=== PATIENT | female | born 1965 | race Caucasian/White ===

== ENCOUNTER 2022-06-13 11:51 | Observation (INO) | payer OTHER, SELFPAY ==
[2022-06-13] VITALS (37 sets, daily range): BP systolic 100–122; BP diastolic 62–75; PULSE 67–79; RESP 12–27; TEMP 36.5–36.6; O2SAT 97–100; BMI 27.4
--- NOTE | ~2022-06-13 | XR_ITS ---
EXAMINATION: XR chest 2V DATE: 06/13/2022 13:24 INDICATION: Cough and bilateral chest pain TECHNIQUE: PA and lateral views of the chest were obtained. COMPARISON: None FINDINGS: The lungs are clear with no focal airspace opacities, pulmonary edema, pleural effusion or pneumothor ax. The cardiomediastinal silhouette is normal. Mild S-shaped curvature and mild spondylosis of the t horacic and lower thoracic spine. IMPRESSION: 1. No acute cardiopulmonary disease. Reviewed, dictated and finalized at location L.
--- NOTE | ~2022-06-13 | CT_ITS ---
EXAMINATION: CT abdomen pelvis w con DATE: 06/13/2022 14:01 INDICATION: pancreatitis, epigastric pain TECHNIQUE: Computed tomography (CT) of the abdomen and pelvis was performed with 100 mL Omnipaque-350 intravenous contrast. Automated exposure control and iterative reconstruction technique were employe d. The dose-length product was 560.00 mGy-cm. COMPARISON: None. FINDINGS: Lower thorax: 11 mm periesophageal lymph node. Liver: Normal. Biliary/Gallbladder: Gallbladder is normal. No bile duct dilation. Pancreas: No mass or duct dilation. Spleen: Normal. Adrenals: 14 mm indeterminate density right adrenal mass.. Kidneys: Punctate nonobstructing right inferior pole calcification. Subcentimeter right inferior pole hypodensity, too small to characterize but most likely represents a cyst. No suspicious mass, obstru cting stone, or hydronephrosis. GI tract: Mild distal esophageal and gastric wall edema. No small or large bowel dilation. Normal regine endix. Mesentery/Peritoneum: No ascites, mass, or free air. Prominent claudia hepatic and periaortic lymph nod es. 18 mm splenic artery aneurysm Retroperitoneum: No mass. Pelvis: Pelvic organs are within normal limits. Soft Tissues: Uncomplicated fat-containing umbilical hernia. Bones: No acute osseous finding. Lumbar scoliosis and degenerative change. IMPRESSION: Mild esophagitis/gastritis. Periesophageal lymphadenopathy. No CT evidence of pancreatitis. 14 mm ind eterminate right adrenal mass, consider nonemergent, outpatient adrenal CT for further evaluation. 18 mm splenic artery aneurysm, recommend CT follow-up in 1 year. Reviewed, dictated and finalized at location K. IMPRESSION: Mild esophagitis/gastritis. Periesophageal lymphadenopathy. No CT evidence of p ancreatitis. 14 mm indeterminate right adrenal mass, consider nonemergent, outp atient adrenal CT for further evaluation. 18 mm splenic artery aneurysm, recomm end CT follow-up in 1 year.
--- NOTE | ~2022-06-13 | US_ITS ---
Limited Abdominal Sonogram: Real-time sonographic imaging of the right upper quadrant was performed. Clinical History: Abdominal pain Findings: The liver appears normal with no evidence of mass lesion or bile duct dilatation. Main por efrain vein demonstrates normal direction of flow. The gallbladder is well distended, and appears normal with no evidence of gallstone or wall thickening. The common bile duct measures 5 mm. The visualize d pancreas, aorta, and IVC are unremarkable. Impression: No significant abnormality seen. Reviewed, dictated and finalized at location . Impression: No significant abnormality seen.
--- NOTE | 2022-06-13 12:03 | PC.NURSE ---
Pt ambulates into ER c/o SOB and tingling in bilateral feet. Pt states this morning while walking started experiencing SOB and bilateral tingling in her feet. States the tingling has been constant. States she was seen recently at [facility] for similar symptoms and back pain. States she was diagnosed with arthritis. PMS is present in the feet. Pt also has been dealing with bilateral arm pain that comes in waves for a few months. States the pain is causing her difficulty picking up her grandchild. Pt denied any arm pain at this time.
--- NOTE | 2022-06-13 12:12 | PC.NURSE ---
Pt has pain in the middle of her chest when she takes a deep breath.
--- NOTE | 2022-06-13 12:14 | ECG_ITS ---
Measurements Intervals [place] Rate: 76 P: 34 ME: 147 QRS: -16 QRSD: 89 T: 47 QT: 372 QTc: 419 Interpretive Statements SINUS RHYTHM WITH SINUS ARRHYTHMIA LOW QRS VOLTAGE IN PRECORDIAL LEADS BASELINE ARTIFACT- III, V4-V6 BORDERLINE ECG NO PREVIOUS ECG AVAILABLE FOR COMPARISON Electronically Signed On 06-13-2022 12:56:31 CDT by Charlie Silverman D.O.
--- NOTE | 2022-06-13 12:37 | ED.SOB ---
HPI - SOB/Dyspnea General Chief Complaint: Shortness of Breath/Dyspnea Stated Complaint: shorness of breath, headaches Time Seen by Provider: 06/13/22 12:02 History of Present Illness HPI Narrative: Patient is a 56-year-old female presenting with multiple complaints. Patient states that for the last several years she has had neck and back pain that goes into her shoulders. States that x-rays were done last week and she has not heard any results. Patient states that she is also concerned about a bump on her right foot. States that she sometimes feels short of breath and will have substernal chest pain. States that she experienced this yesterday and today. States that she feels generally fatigued. Denies headaches, fevers, numbness or weakness, abdominal pain, vomiting, diarrhea, dysuria, leg swelling. States that both of her feet feel tingly. Related Data Home Medications Medication Instructions Recorded Confirmed gabapentin 100 mg capsule 100 mg PO TID 06/13/22 06/13/22 tizanidine 4 mg tablet 4 mg PO Q6H 06/13/22 06/13/22 Allergies Allergy/AdvReac Type Severity Reaction Status Date / Time No Known Allergies Allergy Verified 06/13/22 11:58 Review of Systems Review of Systems: All systems reviewed & are unremarkable except as noted in HPI and below PMFSH Past Medical History Medical History Arthritis Chronic back pain Surgical History Surgical History (Updated 06/13/22 @ 23:01 by Shilpi Jackson PA-C) History of 2 sections Family History Family History Other Cancer Diabetes mellitus Social History Social History (Updated 06/13/22 @ 23:02 by Shilpi Jackson PA-C) Social History: Surrogate medical decision maker: Clinton Stokes, son. Code status: Full code. Smoking status: Never smoker Alcohol intake: former Substance use: current Substance use type: marijuana Lack of Transportation: No Lack of Food: Never True Current Housing: I Have Housing Concerned About Future Housing: No Difficulty Paying Gas/Electric Bills: No Difficulty Paying for Meds: No Currently Unemployed: No Education: High School Diploma/GED Difficulty w/ Childcare or Family Care: No Additional living arrangements comments: Lives in [place] with son Clinton. Additional occupation/education comments: Unemployed. Spiritual care concerns: No Exam Narrative: GENERAL: Well-appearing, well-nourished, and in no acute distress. HEAD: Normocephalic, atraumatic. EYES: PERRLA and EOMI. ENT: Nares clear, no rhinorrhea or epistaxis. Mucous membranes moist. NECK: Supple. CHEST: Clear to auscultation. No respiratory distress. HEART: Regular rate and rhythm. No murmur heard. Normal peripheral pulses. ABDOMEN: Soft, nontender, nondistended EXTREMITIES: Normal range of motion. No edema. SKIN: Warm, dry, no rash. + Plantar wart on mid lateral right foot NEURO: No focal deficits. Alert and oriented x3. PSYCH: Normal mood and affect. Course Vital Signs Vital signs: Vital Signs Temperature 97.7 F 06/13/22 11:55 Pulse Rate 79 06/13/22 11:55 Respiratory Rate 18 06/13/22 11:55 Blood Pressure 100/75 06/13/22 11:55 Pulse Oximetry 100 06/13/22 11:55 Oxygen Delivery Room Air 06/13/22 11:55 Temperature 97.7 F 06/14/22 04:34 Pulse Rate 77 06/14/22 04:34 Respiratory Rate 18 06/14/22 04:34 Blood Pressure 105/49 L 06/14/22 04:34 Pulse Oximetry 99 06/14/22 04:34 Oxygen Delivery Room Air 06/13/22 11:55 MDM - SOB/Dyspnea MDM Narrative Medical decision making narrative: Patient is a 56-year-old female presenting with a myriad of complaints. Vitals are within normal limits. Exam is remarkable for a wart on the bottom of her right foot but is otherwise unremarkable. EKG per my interpretation shows normal sinus rhythm
[2022-06-13] MEDS: KETOROLAC 15 MG/ML VIAL (*BKC) IV PUSH (13:13)
[2022-06-13] MEDS: SODIUM CHLORIDE 0.9% IV 1,000 ML 999 ML IV CONT (13:14)
[2022-06-13 13:25] LABS: Basophils Percent Auto 0.6 % (0.2-1.2); Eosinophils Absolute Auto 0.1 K/mm3 (0-0.3); Hematocrit 42.2 % (37.0-47.0); Hemoglobin 14.1 g/dL (12.0-15.0); Immature Granulocyte Absolute 0.02 K/mm3 (0.00-0.031); Immature Granulocyte Percent A 0.3 % (0-0.5); Lymphocytes Absolute Auto 1.93 K/mm3 (0.9-3.2); Lymphocytes Percent Auto 30.2 % (18.3-44.2); Mean Corpuscular HGB Conc 33.4 g/dl (32-36); Mean Corpuscular Volume 95.7 fl (80-100); Monocytes Absolute Auto 0.6 K/mm3 (0.1-0.6); Monocytes Percent Auto 8.8 % (2.6-8.5); Neutrophils Absolute Auto 3.7 K/mm3 (1.3-6.7); Neutrophils Percent Auto 58.1 % (45.5-73.1); Platelet Count Result 252 k/mm3 (150-375); Red Blood Count 4.41 M/mm3 (4.2-5.4); Red Cell Distribution Width 12.4 % (11.5-14.5); White Blood Count 6.4 K/mm3 (4.5-10.0)
[2022-06-13 13:36] LABS: Partial Thromboplastin Time 24.3 SECONDS (22.3-36.8); Prothrombin Time 13.5 Seconds (11.1-14.7)
[2022-06-13 13:38] LABS: Alanine Aminotransferase 35 U/L (6-35); Albumin Level 4.3 g/dL (3.5-5.1); Alkaline Phosphatase 174 U/L (38-126); Anion Gap 7 mmol/L (8-16); Aspartate Amino Transferase 31 U/L (14-36); Bilirubin,Total 0.8 mg/dL (0.2-1.3); Blood Urea Nitrogen 18 mg/dL (7-17); Calcium 9.3 mg/dL (8.4-10.2); Carbon Dioxide 26 mmol/L (22-30); Chloride 104 mmol/L (98-107); Estimated CRCL calculation 85 ml/min; Estimated Glomerular Filt Rate > 60; Glucose 90 mg/dL (65-110); Lipase 1134 U/L (23-300); Sodium 137 mmol/L (137-145)
[2022-06-13 13:47] LABS: Influenza A QL RT-PCR Negative (Negative); Influenza B QL RT-PCR Negative (Negative); SARS-CoV-2 RNA PCR Negative (Negative)
[2022-06-13 13:47] LABS: NT Pro B Type Natriuretic Pept 151 pg/mL (19.9-100)
[2022-06-13 13:50] LABS: Troponin I < 0.012 ng/mL (0.000-0.034)
--- NOTE | 2022-06-13 15:37 | PC.NURSE ---
Pt's NSS is finished. RN disconnects pt from IV tubing at 1535.
--- NOTE | 2022-06-13 18:57 | ADMGEN ---
This patient, Yen Stokes, was admitted to Medical Room [facility] @ 1437. Patient/family oriented to hospital policies and general routines including ID bracelet, bed and alarms, visiting hours, pain management, procedures, bathroom and other care routines, personal items, smoking policy, room service/diet, and visiting hours. Information on how to activate the Rapid Response Team has been discussed. Patient/Family are encouraged to report perceived risks to care and to ask questions if they do not understand what they are told or what they should do.
--- NOTE | 2022-06-13 19:05 | PM.IMHP ---
H&P: HPI History of Present Illness Date/Time: 06/13/22 17:30 Chief Complaint: Multiple complaints. Narrative: This is a 56-year-old female with chronic back pain who presented to the emergency department via private vehicle from home for evaluation of multiple complaints. The patient provides the following history. She has chronic back pain and had an extensive evaluation done by her primary physician recently, per patient report, and she was diagnosed with arthritis. She was told to take Tylenol or ibuprofen at home as needed and she was started on gabapentin and tizanidine as well. Unfortunately she continues to have significant pain at she describes as sharp and shooting which goes up and down the spine. She also reports that she is now having some pain in the low chest and upper abdominal region which is also sharp and shooting. Associated symptoms include mild shortness of breath, headache, nausea, bloating, and belching. She denies fever, chills, sweats, chest and pleuritic pain, racing heart, palpitations, vomiting, diarrhea, and dysuria. No melena or hematochezia. she has not had any recent falls. She denies focal weakness and paresthesias. Vital signs were stable on arrival to the ED. Aside from a mildly elevated lipase of 1134, her labs were otherwise pretty unremarkable. Chest x-ray showed no acute cardiopulmonary disease. CT of the abdomen and pelvis showed mild esophagitis/gastritis, periesophageal lymphadenopathy, 18 mm splenic artery aneurysm, and a 14 mm indeterminate right adrenal mass. She is being admitted in this setting for symptom management and GI consultation. Review of Systems Review of Systems: Twelve systems were reviewed and are negative except for as per HPI. [facility] Past Medical History Medical History Arthritis Chronic back pain Surgical History Surgical History (Updated 06/13/22 @ 23:01 by Shilpi Jackson PA-C) History of 2 sections Family History Family History Other Cancer Diabetes mellitus Social History Social History (Updated 06/13/22 @ 23:02 by Shilpi Jackson PA-C) Social History: Surrogate medical decision maker: Clinton Stokes, son. Code status: Full code. Smoking status: Never smoker Alcohol intake: former Substance use: current Substance use type: marijuana Lack of Transportation: No Lack of Food: Never True Current Housing: I Have Housing Concerned About Future Housing: No Difficulty Paying Gas/Electric Bills: No Difficulty Paying for Meds: No Currently Unemployed: No Education: High School Diploma/GED Difficulty w/ Childcare or Family Care: No Additional living arrangements comments: Lives in [place] with son Clinton. Additional occupation/education comments: Unemployed. Spiritual care concerns: No Meds Home Medications and Allergies Home Medications Medication Instructions Recorded Confirmed Type gabapentin 100 mg capsule 100 mg PO TID 06/13/22 06/13/22 History tizanidine 4 mg tablet 4 mg PO Q6H 06/13/22 06/13/22 History Allergies Allergy/AdvReac Type Severity Reaction Status Date / Time No Known Allergies Allergy Verified 06/13/22 11:58 Vital Signs Vital Signs - 24 hr 06/13/22 11:55 06/13/22 12:08 06/13/22 12:11 Temperature 97.7 F Pulse Rate 79 77 Respiratory Rate 18 18 Blood Pressure 100/75 Pulse Oximetry 100 Oxygen Delivery Room Air 06/13/22 12:10 06/13/22 12:15 06/13/22 12:17 Temperature Pulse Rate 72 74 Respiratory Rate 22 H 22 H Blood Pressure 103/63 Pulse Oximetry 100 100 100 Oxygen Delivery 06/13/22 12:51 06/13/22 13:00 06/13/22 13:01 Temperature Pulse Rate 70 69 72 Respiratory Rate 18 24 H 20 Blood Pressure 105/73 Pulse Oximetry 100 100 100 Oxygen Delivery 06/13/22 13:15 06/13/22 13:31 06/13/22 13:45 T
[2022-06-13 19:21] LABS: Troponin I < 0.012 ng/mL (0.000-0.034)
[2022-06-13 22:32] LABS: Troponin I < 0.012 ng/mL (0.000-0.034)
[2022-06-14] MEDS: LACTATED RINGERS 1,000 ML 100 ML IV CONT ×2 (00:24→12:53)
[2022-06-14] MEDS: HYDROcodone/acetaminophen (*CRX) 5-325 MG TABLET 1 TAB PO (00:24)
[2022-06-14] MEDS: PANTOPRAZOLE SODIUM IV 40 MG VIAL IV PUSH ×3 (00:24→20:30)
[2022-06-14 04:34] VITALS: BP 105/49; PULSE 77; RESP 18; TEMP 36.5; O2SAT 99
[2022-06-14 05:44] LABS: Hematocrit 38.7 % (37.0-47.0); Hemoglobin 12.8 g/dL (12.0-15.0); Mean Corpuscular HGB Conc 33.1 g/dl (32-36); Mean Corpuscular Hemoglobin 32.2 pg (26-34); Mean Corpuscular Volume 97.2 fl (80-100); Mean Platelet Volume 9.2 fl (7.4-10.4); Platelet Count Result 197 k/mm3 (150-375); Red Blood Count 3.98 M/mm3 (4.2-5.4); Red Cell Distribution Width 12.4 % (11.5-14.5)
[2022-06-14 06:01] LABS: Alanine Aminotransferase 30 U/L (6-35); Albumin Level 3.6 g/dL (3.5-5.1); Alkaline Phosphatase 140 U/L (38-126); Anion Gap 3 mmol/L (8-16); Aspartate Amino Transferase 28 U/L (14-36); Bilirubin,Total 0.8 mg/dL (0.2-1.3); Blood Urea Nitrogen 16 mg/dL (7-17); Calcium 8.5 mg/dL (8.4-10.2); Carbon Dioxide 26 mmol/L (22-30); Chloride 106 mmol/L (98-107); Estimated CRCL calculation 96 ml/min; Estimated Glomerular Filt Rate > 60; Glucose 84 mg/dL (65-110); Lipase 240 U/L (23-300); Magnesium 1.8 mg/dL (1.6-2.3); Potassium 3.9 mmol/L (3.4-5.0); Sodium 135 mmol/L (137-145)
--- NOTE | 2022-06-14 08:05 | PM.IMPN ---
Progress Note: A&P Assessment and Plan (1) Esophagitis with gastritis: Code(s): K29.70 - Gastritis, unspecified, without bleeding; K20.90 - Esophagitis, unspecified without bleeding Status: Acute Assessment and Plan: CT shows mild esophagitis/gastritis. This is likely the cause of her abdominal discomfort, belching, and nausea. Continue IV pantoprazole 40 mg BID. GI is been consulted and plan for EGD tomorrow. (2) Pancreatitis: Qualifiers: Chronicity: acute Pancreatitis type: unspecified pancreatitis type Acute pancreatitis complication: no infection or necrosis Qualified Code(s): K85.90 - Acute pancreatitis without necrosis or infection, unspecified Code(s): K85.90 - Acute pancreatitis without necrosis or infection, unspecified Status: Acute Assessment and Plan: Lipase is elevated 1134 with c/o abdominal pain, nausea and back pain. No evidence of acute pancreatitis on CT. Continue supportive care for now with bowel rest, IV fluid rehydration, and analgesics and antiemetics as needed. Repeat lipase 240 check Abd ultrasound Check triglycerides GI consulted as above (3) Right adrenal mass: Code(s): E27.8 - Other specified disorders of adrenal gland Status: Acute Assessment and Plan: New, incidental finding. 14 mm indeterminate right adrenal mass noted on CT. Nonemergent, outpatient adrenal CT recommended. (4) Splenic artery aneurysm: Code(s): I72.8 - Aneurysm of other specified arteries Status: Acute Assessment and Plan: New, incidental finding. 18 mm splenic artery aneurysm noted, radiologist recommend CT follow-up in 1 year. (5) Chronic back pain: Qualifiers: Back pain location: low back pain Back pain laterality: unspecified Sciatica presence: unspecified whether sciatica present Qualified Code(s): M54.50 - Low back pain, unspecified; G89.29 - Other chronic pain Code(s): M54.9 - Dorsalgia, unspecified; G89.29 - Other chronic pain Status: Chronic Assessment and Plan: Continue gabapentin and tizanidine as needed. Time Spent With Patient Time with patient: 15 - 25 minutes Subjective Date/time seen: 06/14/22 08:05 Interval history: Patient is a 56-year-old female with history of lower back pain and arthritis who is seen for follow up of possible acute pancreatitis and esophagitis. She reports feeling well today. Her pain is significantly improved and she tolerated regular diet. She will have EGD tomorrow. She denies unplanned weight loss, dysphagia, neck pain or swelling. Exam Narrative: General: Well-developed, nontoxic-appearing female sitting up in bed. HEENT: Normocephalic, atraumatic, pERRL, EOMI. Sclera anicteric. mucous membranes moist Neck: Supple. Respiratory: Lungs are clear to auscultation bilaterally. Respirations regular and unlabored Cardiovascular: Regular rate and rhythm with S1-S2. No murmurs gallops rubs Gastrointestinal: Abdomen is soft and nondistended with positive bowel sounds. Nontender to palpation all quadrants. No guarding or rebound tenderness. Skin: Warm and dry. No rash or lesions on limited exam. Extremities: No cyanosis, clubbing, or edema. Radial and pedal pulses intact. Neurological: Alert and oriented x3. Cranial nerves 2-12 are grossly intact. No gross focal deficits to casual conversation. Psychiatric: Neutral mood and affect. Objective Data Vital Signs Vital Signs: Vital Signs - 24 hr 06/13/22 11:55 06/13/22 12:08 06/13/22 12:11 Temperature 97.7 F Pulse Rate 79 77 Respiratory Rate 18 18 Blood Pressure 100/75 Pulse Oximetry 100 Oxygen Delivery Room Air 06/13/22 12:10 06/13/22 12:15 06/13/22 12:17 Temperature Pulse Rate 72 74 Respiratory Rate 22 H 22 H Blood Pressure 103/63 Pulse Oximetry 100 100 100 Oxygen Delivery 06/13/22 12:51 06/13/22 13:00 06/13/22 13:01 Temperature Pu
[2022-06-14 08:16] LABS: Cholesterol 172 mg/dL (0-200); HDL Direct 45 mg/dL; Triglycerides 81 mg/dL (<150)
[2022-06-14 08:27] LABS: LDL Cholesterol Direct 96 mg/dL
[2022-06-14 09:20] VITALS: PULSE 71; RESP 16; O2SAT 100
[2022-06-14] MEDS: GABAPENTIN 100 MG CAPSULE PO ×3 (09:28→17:58)
[2022-06-14 14:00] VITALS: BP 96/61; PULSE 71; RESP 16; TEMP 36.6; O2SAT 100
--- NOTE | 2022-06-14 14:08 | WPDGICN ---
Assessment and Plan Assessment and plan (1) Abnormal CT scan, esophagus: Code(s): R93.3 - Abnormal findings on diagnostic imaging of other parts of digestive tract Status: Acute Assessment and Plan: ct scan showed possible esophagitis will set up egd tomorrow had elevated lipase but no nausea and CT scan no pancreatitis (2) Chronic back pain: Code(s): M54.9 - Dorsalgia, unspecified; G89.29 - Other chronic pain Status: Chronic Assessment and Plan: on meds at home (3) Elevated lipase: Code(s): R74.8 - Abnormal levels of other serum enzymes Status: Acute (4) Non-cardiac chest pain: Code(s): R07.89 - Other chest pain Status: Acute Assessment and Plan: egd tomorrow (5) Colon cancer screening: Code(s): Z12.11 - Encounter for screening for malignant neoplasm of colon Status: Acute Assessment and Plan: never had colonoscopy agreeable to have one as outpatient GI Consult Note Consult date/time: 06/14/22 14:08 Reason for consult: chest pain, elevated lipase, abnormal esophagus by ct scan HPI: Yen Stokes is a 56 year old female with chronic back pain on gabapentin who came to the emergency department via private vehicle from home for evaluation of progressive back pain lately with radiation to upper chest described as sharp and shooting. She also had mild shortness of breath, headache, bloating, and belching. No melena or hematochezia. Blood work showed mildly elevated lipase of 1134, her labs were otherwise pretty unremarkable. Chest x-ray showed no acute cardiopulmonary disease. CT of the abdomen and pelvis showed mild esophagitis/gastritis, periesophageal lymphadenopathy, 18 mm splenic artery aneurysm (no pancreatitis). Never had scopes. Denies nausea and pain is better now. She is hungry Review of Systems Constitutional: Constitutional: Denies chills Eyes: Eyes: Denies blurry vision ENT: Reports Normal hearing present Cardiovascular: Cardiovascular: Reports chest pain Respiratory: Respiratory: Denies cough Gastrointestinal: Gastrointestinal: Denies vomiting Genitourinary: Genitourinary: Denies hematuria Musculoskeletal: Musculoskeletal: Reports back pain Integumentary/Breasts: Skin/Breast: Denies rash Neurologic: Denies Abnormal speech present Psychiatric: Psychiatric: Denies confusion [facility] Past Medical History Medical History (Updated 06/14/22 @ 14:14 by Abdi Bonilla MD) Abnormal CT scan, esophagus Arthritis Chronic back pain Colon cancer screening Elevated lipase Non-cardiac chest pain Surgical History Surgical History (Updated 06/13/22 @ 23:01 by Shilpi Jackson PA-C) History of 2 sections Family History Family History Other Cancer Diabetes mellitus Social History Social History (Updated 06/13/22 @ 23:02 by Shilpi Jackson PA-C) Social History: Surrogate medical decision maker: Clinton Stokes, son. Code status: Full code. Smoking status: Never smoker Alcohol intake: former Substance use: current Substance use type: marijuana Lack of Transportation: No Lack of Food: Never True Current Housing: I Have Housing Concerned About Future Housing: No Difficulty Paying Gas/Electric Bills: No Difficulty Paying for Meds: No Currently Unemployed: No Education: High School Diploma/GED Difficulty w/ Childcare or Family Care: No Additional living arrangements comments: Lives in [place] with son Clinton. Additional occupation/education comments: Unemployed. Spiritual care concerns: No Meds Home Medications and Allergies Home Medications Medication Instructions Recorded Confirmed Type gabapentin 100 mg capsule 100 mg PO TID 06/13/22 06/13/22 History tizanidine 4 mg tablet 4 mg PO Q6H 06/13/22 06/13/22 History Allergies Allergy/AdvReac Type Severity
[2022-06-14 19:39] VITALS: BP 124/57; PULSE 69; RESP 18; TEMP 36.1; O2SAT 96
[2022-06-14 20:00] VITALS: PULSE 69; RESP 18; O2SAT 96
[2022-06-15] VITALS (9 sets, daily range): BP systolic 88–133; BP diastolic 51–79; PULSE 61–75; RESP 16–22; TEMP 36.5–36.7; O2SAT 95–100
[2022-06-15 06:23] LABS: Basophils Percent Auto 0.7 % (0.2-1.2); Eosinophils Absolute Auto 0.5 K/mm3 (0-0.3); Hematocrit 44.4 % (37.0-47.0); Hemoglobin 14.8 g/dL (12.0-15.0); Immature Granulocyte Absolute 0.01 K/mm3 (0.00-0.031); Immature Granulocyte Percent A 0.2 % (0-0.5); Lymphocytes Absolute Auto 1.68 K/mm3 (0.9-3.2); Lymphocytes Percent Auto 27.4 % (18.3-44.2); Mean Corpuscular HGB Conc 33.3 g/dl (32-36); Mean Corpuscular Volume 95.9 fl (80-100); Mean Platelet Volume 9.6 fl (7.4-10.4); Monocytes Absolute Auto 0.6 K/mm3 (0.1-0.6); Monocytes Percent Auto 10.3 % (2.6-8.5); Neutrophils Absolute Auto 3.3 K/mm3 (1.3-6.7); Neutrophils Percent Auto 53.4 % (45.5-73.1); Platelet Count Result 242 k/mm3 (150-375); Red Blood Count 4.63 M/mm3 (4.2-5.4); Red Cell Distribution Width 12.5 % (11.5-14.5); White Blood Count 6.1 K/mm3 (4.5-10.0)
[2022-06-15 06:31] LABS: Prothrombin Time 13.5 Seconds (11.1-14.7)
[2022-06-15 06:32] LABS: Partial Thromboplastin Time 26.1 SECONDS (22.3-36.8)
[2022-06-15 06:34] LABS: Alanine Aminotransferase 33 U/L (6-35); Albumin Level 4.4 g/dL (3.5-5.1); Alkaline Phosphatase 165 U/L (38-126); Anion Gap 3 mmol/L (8-16); Aspartate Amino Transferase 33 U/L (14-36); Bilirubin,Total 0.6 mg/dL (0.2-1.3); Blood Urea Nitrogen 17 mg/dL (7-17); Calcium 9.3 mg/dL (8.4-10.2); Carbon Dioxide 30 mmol/L (22-30); Chloride 105 mmol/L (98-107); Estimated CRCL calculation 84 ml/min; Estimated Glomerular Filt Rate > 60; Glucose 99 mg/dL (65-110); Magnesium 1.9 mg/dL (1.6-2.3); Potassium 4.3 mmol/L (3.4-5.0); Sodium 138 mmol/L (137-145)
[2022-06-15] MEDS: GABAPENTIN 100 MG CAPSULE PO ×3 (08:08→17:29)
[2022-06-15] MEDS: PANTOPRAZOLE SODIUM IV 40 MG VIAL IV PUSH (08:08)
[2022-06-15] MEDS: LACTATED RINGERS 1,000 ML 150 ML IV CONT (11:15)
--- NOTE | 2022-06-15 11:49 | WPDANESEPPF ---
Anes - Initial Pre Proc Eval Procedure: Operation Date: 06/15/22 12:00 Proposed Procedures p Esophagogastroduodenoscopy - Abdi Bonilla MD Date/Time: 06/15/22 11:49 Surgeon: Jameson Resendez MD Pre Op Diagnosis: Pancreatitis Patient Data Age: 56 Gender: F Height: 1.68 m Weight: 78.6 kg Last Vital Signs Temp 97.7 F 06/15/22 11:05 Pulse 61 06/15/22 11:05 Resp 16 06/15/22 11:05 BP 94/61 L 06/15/22 11:44 Pulse Ox 99 06/15/22 11:05 O2 Del Method Room Air 06/15/22 11:05 Allergies Allergy/AdvReac Type Severity Reaction Status Date / Time No Known Allergies Allergy Verified 06/15/22 11:02 Home Medications Medication Instructions Recorded Confirmed Type gabapentin 100 mg capsule 100 mg PO TID 06/13/22 06/13/22 History tizanidine 4 mg tablet 4 mg PO Q6H 06/13/22 06/13/22 History Laboratory Tests 06/15/22 06:04 WBC 6.1 K/mm3 (4.5-10.0) RBC 4.63 M/mm3 (4.2-5.4) Hgb 14.8 g/dL (12.0-15.0) Hct 44.4 % (37.0-47.0) MCV 95.9 fl (80-100) MCH 32.0 pg (26-34) MCHC 33.3 g/dl (32-36) RDW 12.5 % (11.5-14.5) Plt Count 242 k/mm3 (150-375) MPV 9.6 fl (7.4-10.4) Immature Gran % (Auto) 0.2 % (0-0.5) Neut % (Auto) 53.4 % (45.5-73.1) Lymph % (Auto) 27.4 % (18.3-44.2) [place] % (Auto) 10.3 H % (2.6-8.5) Eos % (Auto) 8.0 H % (0-4.4) Baso % (Auto) 0.7 % (0.2-1.2) Lymph # (Auto) 1.68 K/mm3 (0.9-3.2) [place] # (Auto) 0.6 K/mm3 (0.1-0.6) Eos # (Auto) 0.5 H K/mm3 (0-0.3) Baso # (Auto) 0.0 K/mm3 (0.0-0.1) Abs Immat Gran (auto) 0.01 K/mm3 (0.00-0.031) Absolute Neuts (auto) 3.3 K/mm3 (1.3-6.7) Absolute Nucleated RBC 0.0 K/mm3 (0.0-0.012) Nucleated RBC % 0.0 % (0.0-0.2) PT 13.5 Seconds (11.1-14.7) INR 1.0 APTT 26.1 SECONDS (22.3-36.8) Sodium 138 mmol/L (137-145) Potassium 4.3 mmol/L (3.4-5.0) Chloride 105 mmol/L (98-107) Carbon Dioxide 30 mmol/L (22-30) Anion Gap 3 L mmol/L (8-16) BUN 17 mg/dL (7-17) Creatinine 0.70 mg/dL (0.7-1.0) Estim Creat Clear Calc 84 ml/min Estimated GFR > 60 (59 - ) Glucose 99 mg/dL (65-110) Calcium 9.3 mg/dL (8.4-10.2) Magnesium 1.9 mg/dL (1.6-2.3) Total Bilirubin 0.6 mg/dL (0.2-1.3) AST 33 U/L (14-36) ALT 33 U/L (6-35) Alkaline Phosphatase 165 H U/L (38-126) Total Protein 8.0 g/dL (6.3-8.2) Albumin 4.4 g/dL (3.5-5.1) Patient hx anesthesia problems: none Family hx anesthesia problems: none Results Review: All pre-operative results and documents have been reviewed as part of the pre-operative evaluation. [facility] Past Medical History Medical History (Updated 06/14/22 @ 17:00 by Jacquelyn Harrison APRN) Abnormal CT scan, esophagus Arthritis Chronic back pain Colon cancer screening Elevated lipase Non-cardiac chest pain Surgical History Surgical History (Updated 06/13/22 @ 23:01 by Shilpi Jackson PA-C) History of 2 sections Family History Family History Other Cancer Diabetes mellitus Social History Social History (Updated 06/13/22 @ 23:02 by Shilpi Jackson PA-C) Social History: Surrogate medical decision maker: Clinton Stokes, son. Code status: Full code. Smoking status: Never smoker Alcohol intake: former Substance use: current Substance use type: marijuana Lack of Transportation: No Lack of Food: Never True Current Housing: I Have Housing Concerned About Future Housing: No Difficulty Paying Gas/Electric Bills: No Difficulty Paying for Meds: No Currently Unemployed: No Education: High School Diploma/GED Difficulty w/ Childcare or Family Care: No Additional living arrangements comments: Lives in [place] with son Clinton. Additional occupation/education c
--- NOTE | 2022-06-15 15:57 | PM.IMPN ---
Progress Note: A&P Assessment and Plan (1) Esophagitis with gastritis: Code(s): K29.70 - Gastritis, unspecified, without bleeding; K20.90 - Esophagitis, unspecified without bleeding Status: Acute Assessment and Plan: CT shows mild esophagitis/gastritis. This is likely the cause of her abdominal discomfort, belching, and nausea. / EGD shows moderate, erosive gastritis. Continue pantoprazole 40 mg PO daily GI following. Advance diet as tolerated. (2) Pancreatitis: Qualifiers: Chronicity: acute Pancreatitis type: unspecified pancreatitis type Acute pancreatitis complication: no infection or necrosis Qualified Code(s): K85.90 - Acute pancreatitis without necrosis or infection, unspecified Code(s): K85.90 - Acute pancreatitis without necrosis or infection, unspecified Status: Resolved Assessment and Plan: Possible pancreatitis given elevated lipase and abdominal pain, however, no evidence of acute pancreatitis on CT. supportive care given initally with bowel rest, IV fluid rehydration, and analgesics and antiemetics as needed. Lipase 1134 to 240 Abd ultrasound without gallbladder disease. triglycerides <100 GI consulted as above (3) Right adrenal mass: Code(s): E27.8 - Other specified disorders of adrenal gland Status: Acute Assessment and Plan: New, incidental finding. 14 mm indeterminate right adrenal mass noted on CT. Nonemergent, outpatient adrenal CT recommended. (4) Splenic artery aneurysm: Code(s): I72.8 - Aneurysm of other specified arteries Status: Acute Assessment and Plan: New, incidental finding. 18 mm splenic artery aneurysm noted, radiologist recommend CT follow-up in 1 year. (5) Chronic back pain: Qualifiers: Back pain location: low back pain Back pain laterality: unspecified Sciatica presence: unspecified whether sciatica present Qualified Code(s): M54.50 - Low back pain, unspecified; G89.29 - Other chronic pain Code(s): M54.9 - Dorsalgia, unspecified; G89.29 - Other chronic pain Status: Chronic Assessment and Plan: Continue gabapentin and tizanidine as needed. (6) Lymphadenopathy: Code(s): R59.1 - Generalized enlarged lymph nodes Status: Acute Assessment and Plan: New, incidental finding. 11 mm periesophageal lymph node enlargement. Discussed with radiology and likely reactive and not amendable to biopsy. Repeat CT in 6-8 weeks for follow up. Plan CODE STATUS: FULL CODE Discharge disposition: discharge home tomorrow if tolerating diet. Time Spent With Patient Time: 25 minutes time spent with patient assessment, patient education, review of labs, vitals, nursing documentation, and consulting with specialty provider. All questions answered to the best of my ability. Subjective Date/time seen: 06/15/22 15:57 Interval history: Patient is a 56-year-old female with history of lower back pain and arthritis who is seen for follow up of possible acute pancreatitis and esophagitis. Patient had EGD today. She reports nausea and some diffuse abdominal cramping today. No emesis. She has not eaten yet. No chest pain, SOB, palpitations, or dizziness. Review of Systems Review of Systems: All systems reviewed & are unremarkable except as noted in HPI and below Exam Narrative: General: Well-developed, nontoxic-appearing female sitting up in bed. HEENT: Normocephalic, atraumatic, pERRL, EOMI. Sclera anicteric. mucous membranes moist Neck: Supple. Respiratory: Lungs are clear to auscultation bilaterally. Respirations regular and unlabored Cardiovascular: Regular rate and rhythm with S1-S2. No murmurs gallops rubs Gastrointestinal: Abdomen is soft and nondistended with positive bowel sounds. Nontender to palpation all quadrants. No guarding or rebound tenderness. Skin: Warm and dry. No rash or lesions on limited exam.
[2022-06-16 04:58] VITALS: BP 103/62; PULSE 82; RESP 16; TEMP 36.2; O2SAT 98
[2022-06-16] MEDS: PANTOPRAZOLE 40 MG TABLET PO (08:45)
[2022-06-16] MEDS: GABAPENTIN 100 MG CAPSULE PO ×3 (08:45→16:57)
--- NOTE | 2022-06-16 13:16 | PM.DS ---
DS: Admitting Diagnosis Discharge Date 06/16/2022 Admitting Diagnosis Esophagitis with gastritis Acute pancreatitis without necrosis or infection, unspecified Right adrenal mass Splenic artery aneurysm Chronic back pain DS: Discharge Diagnosis Discharge Diagnosis (1) Gastritis: Qualifiers: Gastritis type: other gastritis Chronicity: acute Gastritis bleeding: without bleeding Qualified Code(s): K29.00 - Acute gastritis without bleeding Code(s): K29.70 - Gastritis, unspecified, without bleeding Status: Acute Assessment and Plan: CT suggests mild esophagitis/gastritis. This is likely the cause of her abdominal discomfort, belching, and nausea.? 06/15 EGD shows moderate erosive gastritis.? Continue pantoprazole 40 mg PO daily GI following.? Advance diet following EGD to low residue diet and patient is tolerating.? (2) Elevated lipase: Code(s): R74.8 - Abnormal levels of other serum enzymes Status: Acute Assessment and Plan: Possible pancreatitis given elevated lipase and abdominal pain, however, no evidence of acute pancreatitis on CT.?Pain is likely secondary to gastritis and unknown clinical significance of elevated lipase. supportive care given initially with bowel rest, IV fluid rehydration, and analgesics and antiemetics as needed.? Lipase 1134 to 240 Abd ultrasound without gallbladder disease.? triglycerides <100? GI consulted as above Improved abd pain on PPI therapy at discharge.d (3) Non-cardiac chest pain: Code(s): R07.89 - Other chest pain Status: Acute Assessment and Plan: Secondary to gastroenteritis as above. Troponin negative x3 EKG without ischemic changes. (4) Right adrenal mass: Code(s): E27.8 - Other specified disorders of adrenal gland Status: Acute Assessment and Plan: New, incidental finding. 14 mm indeterminate right adrenal mass noted on CT. Nonemergent, outpatient adrenal CT recommended. (5) Splenic artery aneurysm: Code(s): I72.8 - Aneurysm of other specified arteries Status: Acute Assessment and Plan: New, incidental finding. 18 mm splenic artery aneurysm noted, radiologist recommend CT follow-up in 1 year. (6) Chronic back pain: Qualifiers: Back pain laterality: unspecified Back pain location: low back pain Sciatica presence: unspecified whether sciatica present Qualified Code(s): M54.50 - Low back pain, unspecified; G89.29 - Other chronic pain Code(s): M54.9 - Dorsalgia, unspecified; G89.29 - Other chronic pain Status: Chronic Assessment and Plan: Continue gabapentin and tizanidine as needed. (7) Lymphadenopathy: Code(s): R59.1 - Generalized enlarged lymph nodes Status: Acute Assessment and Plan: New, incidental finding. 11 mm periesophageal lymph node enlargement. Discussed with radiology and likely reactive and not amendable to biopsy. Repeat CT in 6-8 weeks for follow up. DS: Summary Hospital Course Reason for hospitalization: Abd pain, possible acute pancreatitis Hospital Course: Patient is a 56-year-old female with chronic back pain who presented to the emergency department via private vehicle from home for evaluation of multiple complaints. She has chronic back pain and had an extensive evaluation done by her primary physician recently, per patient report, and she was diagnosed with arthritis. She was told to take Tylenol or ibuprofen at home as needed and she was started on gabapentin and tizanidine as well. Unfortunately she continues to have significant pain at she describes as sharp and shooting which goes up and down the spine. She has been having some pain in the low chest and upper abdominal region which is also sharp and shooting. Associated symptoms include mild shortness of breath, headache, nausea, bloating, and belching. She denied fever, chills, sweats, chest and pleuriti
[2022-06-16] MEDS: SIMETHICONE 80 MG TAB.CHEW PO ×2 (13:30→16:57)
[2022-06-16 14:00] VITALS: BP 115/72; PULSE 75; RESP 16; TEMP 36.5; O2SAT 100
--- NOTE | 2022-06-16 15:09 | WPDGIPROGNO ---
Progress Note: A&P Assessment and Plan (1) Gastritis: Code(s): K29.70 - Gastritis, unspecified, without bleeding Status: Acute Assessment and Plan: gastritis s/p bx she can go home with ppi (2) Non-cardiac chest pain: Code(s): R07.89 - Other chest pain Status: Acute (3) Colon cancer screening: Code(s): Z12.11 - Encounter for screening for malignant neoplasm of colon Status: Acute Assessment and Plan: will arrange colonoscopy as outpatient since never had one (4) Chronic back pain: Qualifiers: Back pain location: low back pain Back pain laterality: unspecified Sciatica presence: unspecified whether sciatica present Qualified Code(s): M54.50 - Low back pain, unspecified; G89.29 - Other chronic pain Code(s): M54.9 - Dorsalgia, unspecified; G89.29 - Other chronic pain Status: Chronic Subjective Date/time seen: 06/16/22 15:09 Interval history: egd yesterday showed gastritis, today had bloating and gas sensation , better today and going home Review of Systems Review of Systems: All systems reviewed & are unremarkable except as noted in HPI and below Exam Const: General: comfortable and no acute distress HENMT: Face/Nose/Sinus: Normal nares present Eyes: General: appearance normal, both eyes and all related structures Neck: Neck: no JVD Resp: Auscultation: clear to auscultation bilaterally Cardio: Rate: regular rate Rhythm: regular rhythm GI: Inspection: non-distended GI Palp: Yes Soft to palpation, No Tenderness to palpation present (GI) and No Guarding due to palpation present (GI) Auscultation: normal bowel sounds Skin: General skin exam: normal color Neuro: Speech: normal speech Motor exam (neuro): 5/5 motor strength present throughout Extrem: General: normal to inspection Psych: Mental Status: mental status grossly normal Objective Data Vital Signs Vital Signs: Vital Signs - 24 hr 06/15/22 20:40 06/15/22 20:00 06/16/22 04:58 Temperature 97.9 F 97.1 F L Pulse Rate 75 75 82 Respiratory Rate 18 18 16 Blood Pressure 103/69 103/62 Pulse Oximetry 99 99 98 Oxygen Delivery Room Air 06/16/22 14:00 Temperature 97.7 F Pulse Rate 75 Respiratory Rate 16 Blood Pressure 115/72 Pulse Oximetry 100 Oxygen Delivery Intake/Output Intake/Output: Intake & Output 06/13/22 06/14/22 06/15/22 06/16/22 23:59 23:59 23:59 23:59 Intake Total 1000 3280 1410 530 Output Total 1400 1150 1050 Balance 1000 1880 260 -520 Meds/Results Medications: Active Medications Generic Name Dose Route Start Last Admin Trade Name Freq PRN Reason Stop Dose Admin Acetaminophen 650 mg 06/13/22 23:02 Acetaminophen 325 Mg Tablet PO Q6H PRN Mild Pain (1-3) or Fever Hydrocodone Bitart/Acetaminophen 1 tab 06/13/22 23:02 06/14/22 00:24 Hydrocodone/Acetaminophen (*Crx) 5-325 Mg Tablet PO 1 tab Q6H PRN Administration Pain Rated 4-6 Gabapentin 100 mg 06/14/22 09:00 06/16/22 13:30 Gabapentin 100 Mg Capsule PO 100 mg TID DIPIKA Administration Morphine Sulfate 2 mg 06/13/22 23:02 Morphine Sulfate (*Crx) 2 Mg/Ml Inj IV PUSH Q4H PRN Pain Rated 7-10 Ondansetron HCl 4 mg 06/13/22 16:10 Ondansetron Inj 4 Mg/2 Ml Vial IV PUSH Q4H PRN Nausea Pantoprazole Sodium 40 mg 06/16/22 09:00 06/16/22 08:45 Pantoprazole 40 Mg Tablet PO 40 mg QAM DIPIKA Administration Simethicone 80 mg 06/16/22 13:00 06/16/22 13:30 Simethicone 80 Mg Tab.Chew PO 80 mg QID DIPIKA Administration Tizanidine HCl 4 mg 06/13/22 22:56 Tizanidine Hcl 4 Mg Tablet PO Q6H PRN muscle spasms Radiology Results: ITS Impressions Chest X-Ray 06/13/22 13:25 IMPRESSION: 1. No acute cardiopulmonary disease. Abdomen/Pelvis CT 06/13/22 14:12 IMPRESSION: Mild esophagitis/gastritis. Periesophageal lymphadenopathy. No CT evidence of pancreatitis. 14 mm indetermin
== END 2022-06-16 18:34 | disposition home or self-care (01) ==
LOC: ANHED 12:50 → ANH3MED 19:28
PROVIDERS: Internal Medicine Gastroenterology; Nurse Practitioner Family; Physician Assistant; Admitting Provider Internal Medicine; Emergency Provider Emergency Medicine; PCP Internal Medicine; Visit Provider Student in an Organized Health Care Education/Training Program
PROC: 0DJ08ZZ Inspection of Upper Intestinal Tract, Via Natural or Artificial Opening Endoscopic (ICD-10-PCS; CPT 43235; principal; 2022-06-15 12:00)
DX: K29.70 Gastritis, unspecified, without bleeding (principal); E27.8 Other specified disorders of adrenal gland; I72.8 Aneurysm of other specified arteries; G89.29 Other chronic pain; M54.50 Low back pain, unspecified; Z20.822 Contact with and (suspected) exposure to COVID-19; D35.00 Benign neoplasm of unspecified adrenal gland; R93.3 Abnormal findings on diagnostic imaging of other parts of digestive tract; R07.89 Other chest pain; R59.1 Generalized enlarged lymph nodes; R06.02 Shortness of breath; R51.9 Headache, unspecified; R74.8 Abnormal levels of other serum enzymes; F12.90 Cannabis use, unspecified, uncomplicated; Z79.899 Other long term (current) drug therapy
CPT/HCPCS: 43239; 36415; 71046; 74177; 76705; 80053; 80061; 83690; 83735; 83880; 84484; 85025; 85027; 85610; 85730; 87636; 88305; 93005; 96361; 96374; 96376; 99285; A9270; C9113; G0378; G0379; J1885; J2704; J7030; J7120; Q9967

== ENCOUNTER 2022-07-31 15:15 | Emergency (ER) | payer OTHER, SELFPAY ==
--- NOTE | ~2022-07-31 | XR_ITS ---
EXAM: XR hip RT min 2V DATE: 07/31/2022 18:50 HISTORY: Right hip pain, NKI . COMPARISON: None available. FINDINGS: Normal mineralization. No fracture or dislocation. No lytic or blastic lesion. Mild degene rative change in the lumbar spine, right hip, and pubic symphysis. No erosion or periosteal change. S oft tissues within normal limits. IMPRESSION: No acute osseous finding in the right hip. Reviewed, dictated and finalized at location K.
--- NOTE | ~2022-07-31 | XR_ITS ---
EXAM: XR knee RT 3V DATE: 07/31/2022 18:50 HISTORY: knee pain, NKI . COMPARISON: None available. FINDINGS: Normal mineralization. No fracture or dislocation. No lytic or blastic lesion. Mild tricom partmental osteoarthritis. No erosion or periosteal change. Soft tissues within normal limits. IMPRESSION: No acute osseous finding in the right knee. Reviewed, dictated and finalized at location K.
--- NOTE | ~2022-07-31 | XR_ITS ---
EXAM: XR shoulder RT min 2V DATE: 07/31/2022 18:51 HISTORY: shoulder pain, NKI . COMPARISON: None available. FINDINGS: Normal mineralization. No fracture or dislocation. No lytic or blastic lesion. Moderate AC joint and mild glenohumeral joint degenerative change. Mild subacromial narrowing. No erosion or per iosteal change. Soft tissues within normal limits. IMPRESSION: Moderate AC joint and mild glenohumeral joint osteoarthritis. Subacromial narrowing as ca n be seen with rotator cuff pathology. No acute osseous finding in the right shoulder. Reviewed, dictated and finalized at location K. IMPRESSION: Moderate AC joint and mild glenohumeral joint osteoarthritis. Subac romial narrowing as can be seen with rotator cuff pathology. No acute osseous f inding in the right shoulder.
[2022-07-31 15:16] VITALS: BP 117/68; PULSE 68; RESP 16; TEMP 36.2; O2SAT 100
[2022-07-31 17:39] VITALS: PULSE 60
--- NOTE | 2022-07-31 17:42 | ED.GENADULT ---
HPI - General Adult General Chief complaint: Unspecified Stated complaint: shooting pains Time Seen by Provider: 07/31/22 17:39 History of Present Illness HPI narrative: 56-year-old female presented the ED for evaluation of pain that shot from the right side of her neck and down her arm. Patient also complaining of some pain that radiates from her hip to her knee. Patient states both these are chronic. At time of examination patient denies any current pain or complaints. Patient reports that she does have a history of shoulder issues but has not yet had follow-up for the worsening pain. Related Data Home Medications Medication Instructions Recorded Confirmed gabapentin 100 mg capsule 100 mg PO TID 06/13/22 06/13/22 tizanidine 4 mg tablet 4 mg PO Q6H 06/13/22 06/13/22 Allergies Allergy/AdvReac Type Severity Reaction Status Date / Time No Known Allergies Allergy Verified 07/31/22 17:47 Review of Systems Review of Systems: All systems reviewed & are unremarkable except as noted in HPI and below PMFSH Past Medical History Medical History (Updated 08/01/22 @ 00:01 by Kevin Luke) Abnormal CT scan, esophagus Arthritis Chronic back pain Colon cancer screening Elevated lipase Non-cardiac chest pain Surgical History Surgical History (Updated 06/13/22 @ 23:01 by Shilpi Jackson PA-C) History of 2 sections Family History Family History Other Cancer Diabetes mellitus Social History Social History (Updated 06/13/22 @ 23:02 by Shilpi Jackson PA-C) Social History: Surrogate medical decision maker: Clinton Stokes, blas. Code status: Full code. Smoking status: Never smoker Alcohol intake: former Substance use: current Substance use type: marijuana Lack of Transportation: No Lack of Food: Never True Current Housing: I Have Housing Concerned About Future Housing: No Difficulty Paying Gas/Electric Bills: No Difficulty Paying for Meds: No Currently Unemployed: No Education: High School Diploma/GED Difficulty w/ Childcare or Family Care: No Additional living arrangements comments: Lives in [place] with son Clinton. Additional occupation/education comments: Unemployed. Spiritual care concerns: No Exam Narrative: APPEARANCE: Well appearing, no pain, no distress, well-nourished. HEAD: normocephalic, atraumatic. EYES: PERRLA/EOMI, conjunctivae clear. NOSE: Normal no drainage EARS:TMS clear with good light reflex. THROAT: Pharynx clear, no exudate. NECK: Supple. No adenopathy, no masses. RESPIRATORY: Airway patent, respirations nonlabored. Clear to auscultation bilaterally, no rales, rhonchi, wheezing. CARDIOVASCULAR: Regular rate and rhythm without murmurs rubs or gallops. ABDOMINAL: Soft, nontender, nondistended, normal bowel sounds MUSCULOSKELETAL: Left shoulder tenderness to palpation. NEURO: Alert. Cranial nerves II through XII intact. Grossly intact SKIN: Warm, dry. Normal Color Course Course Emergency Course: 56-year-old female presented to the ED for evaluation of left leg pain and left shoulder pain. X-ray of shoulder was concerning for rotator cuff injury. Patient was updated the results of the imaging and was encouraged of close follow-up with her primary care physician and with orthopedics. All questions and concerns were addressed and patient was well-appearing, discharged. Vital Signs Vital signs: Vital Signs Temperature 97.2 F L 07/31/22 15:16 Pulse Rate 68 07/31/22 15:16 Respiratory Rate 16 07/31/22 15:16 Blood Pressure 117/68 07/31/22 15:16 Pulse Oximetry 100 07/31/22 15:16 Temperature 97.8 F 07/31/22 19:08 Pulse Rate 69 07/31/22 20:08 Respiratory Rate 21 H 07/31/22 20:08 Blood Pressure 126/71 07/31/22 20:08 Pulse Oximetry 97 07/31/22 20:08 Medical Decision Making Vital Signs Vital Signs: Vital Signs Te
[2022-07-31 17:46] VITALS: BP 120/70; PULSE 62; RESP 22; O2SAT 100
[2022-07-31 17:47] VITALS: RESP 18; O2SAT 100
[2022-07-31] MEDS: KETOROLAC 30 MG/ML VIAL (*BKC) IM (18:47)
[2022-07-31 19:08] VITALS: BP 118/63; PULSE 65; RESP 20; TEMP 36.6; O2SAT 100
--- NOTE | 2022-07-31 19:09 | PC.NURSE ---
Patient states that since she got the pain medicine she has no pain.
[2022-07-31 20:08] VITALS: BP 126/71; PULSE 69; RESP 21; O2SAT 97
== END 2022-07-31 20:08 | disposition home or self-care (01) ==
PROVIDERS: Emergency Provider Emergency Medicine; PCP Internal Medicine
DX: M19.011 Primary osteoarthritis, right shoulder (principal)
CPT/HCPCS: 73030; 73502; 73562; 96372; 99284; J1885

== ENCOUNTER 2022-08-14 02:23 | Day surgery (SDC) | payer OTHER, SELFPAY ==
[2022-08-07 10:44] VITALS: BMI 27.0
[2022-08-14 09:14] VITALS: BP 101/43; PULSE 79; RESP 16; TEMP 36.2; O2SAT 99; BMI 27.4
[2022-08-14] MEDS: LACTATED RINGERS 1,000 ML 150 ML IV CONT (09:24)
--- NOTE | 2022-08-14 09:56 | WPDANESEPPF ---
Anes - Initial Pre Proc Eval Procedure: Operation Date: 08/14/22 10:45 Proposed Procedures p Screening Colonoscopy - Abdi Bonilla MD Date/Time: 08/14/22 09:56 Surgeon: Abdi Bonilla MD Pre Op Diagnosis: neoplasm screening Patient Data Age: 56 Gender: F Height: 1.68 m Weight: 77.2 kg Last Vital Signs Temp 97.2 F L 08/14/22 09:14 Pulse 79 08/14/22 09:14 Resp 16 08/14/22 09:14 BP 101/43 L 08/14/22 09:14 Pulse Ox 99 08/14/22 09:14 O2 Del Method Room Air 08/14/22 09:14 Allergies Allergy/AdvReac Type Severity Reaction Status Date / Time No Known Allergies Allergy Verified 08/14/22 09:13 Home Medications Medication Instructions Recorded Confirmed Type tizanidine 4 mg tablet 4 mg PO Q6H 06/13/22 08/14/22 History cyclobenzaprine 10 mg tablet 10 mg PO BID PRN muscle spasm #14 07/31/22 08/14/22 Rx tabs gabapentin 300 mg capsule 300 mg PO TID 08/07/22 08/14/22 History meloxicam 7.5 mg tablet 7.5 mg PO DAILY 08/07/22 08/14/22 History Patient hx anesthesia problems: none Family hx anesthesia problems: none Results Review: All pre-operative results and documents have been reviewed as part of the pre-operative evaluation. [facility] Past Medical History Medical History (Updated 08/01/22 @ 00:01 by Kevin Luke) Abnormal CT scan, esophagus Arthritis Chronic back pain Colon cancer screening Elevated lipase Non-cardiac chest pain Surgical History Surgical History (Updated 06/13/22 @ 23:01 by Shilpi Jackson PA-C) History of 2 sections Family History Family History Other Cancer Diabetes mellitus Social History Social History (Updated 06/13/22 @ 23:02 by Shilpi Jackson PA-C) Social History: Surrogate medical decision maker: Clinton Stokes, son. Code status: Full code. Smoking status: Never smoker Alcohol intake: current Substance use: current Substance use type: marijuana Other substance usage details: SMOKES FOR THE PAIN MOST DAYS OR 4-5 DAYS A WEEK Lack of Transportation: No Lack of Food: Never True Current Housing: I Have Housing Concerned About Future Housing: No Difficulty Paying Gas/Electric Bills: No Difficulty Paying for Meds: No Currently Unemployed: No Education: High School Diploma/GED Difficulty w/ Childcare or Family Care: No Living arrangements: with family Additional living arrangements comments: Lives in [place] with son Clinton. Additional occupation/education comments: Unemployed. Spiritual care concerns: No Anes - Eval Final PreProcedure Day of Procedure 08/14/22 09:56 Patient weight: normal Heart: regular rate and rhythm Lungs: clear to auscultation Airway: Mallampati scale class II Neurological: alert and oriented Last oral intake: >/= 8 hours ASA classification: II Emergent: no Anesthetic plan: proceed Anesthesia type and monitoring: general GIVS and standard monitoring Results Review: All pre-operative results and documents have been reviewed as part of the pre-operative evaluation. Informed Consent: The patient's anesthetic plan and its attendant risks and benefits were discussed with the patient/family/POA. Questions were solicited and answers provided to the satisfaction of the patient/family/POA.
--- NOTE | 2022-08-14 09:57 | PM.HPGS ---
History of Present Illness History of Present Illness Consent: Risks, benefits, and alternatives have been discussed and questions answered. Patient agrees to proceed with procedure. Chief complaint: neoplasm screening Narrative: Yen Stokes is a 56 year old female here for first screening colonoscopy Review of Systems Constitutional: Constitutional: Denies headache(s) and Denies weakness Eyes: Eyes: Denies blurry vision ENT: Reports Normal hearing present, Denies headache(s) and Denies neck pain Cardiovascular: Cardiovascular: Denies chest pain and Denies dyspnea Respiratory: Respiratory: Denies dyspnea Gastrointestinal: Gastrointestinal: Reports no additional gastrointestinal complaints Genitourinary: Genitourinary: Denies dysuria Musculoskeletal: Musculoskeletal: Denies neck pain Integumentary/Breasts: Skin/Breast: Denies dry skin Neurologic: Reports Normal hearing present, Denies headache(s) and Denies weakness Psychiatric: Psychiatric: Denies anxiety Endocrine: Endocrine: Denies change in body appearance Hematologic/Lymphatic: Hematologic/Lymphatic: Denies easy bleeding Allergic/Immunologic: Allergic/Immunologic: Denies urticaria PMFSH Past Medical History Medical History (Updated 08/01/22 @ 00:01 by Kevin uLke) Abnormal CT scan, esophagus Arthritis Chronic back pain Colon cancer screening Elevated lipase Non-cardiac chest pain Surgical History Surgical History (Updated 06/13/22 @ 23:01 by Shilpi Jackson PA-C) History of 2 sections Family History Family History Other Cancer Diabetes mellitus Social History Social History (Updated 06/13/22 @ 23:02 by Shilpi Jackson PA-C) Social History: Surrogate medical decision maker: Clinton Stokes, blas. Code status: Full code. Smoking status: Never smoker Alcohol intake: current Substance use: current Substance use type: marijuana Other substance usage details: SMOKES FOR THE PAIN MOST DAYS OR 4-5 DAYS A WEEK Lack of Transportation: No Lack of Food: Never True Current Housing: I Have Housing Concerned About Future Housing: No Difficulty Paying Gas/Electric Bills: No Difficulty Paying for Meds: No Currently Unemployed: No Education: High School Diploma/GED Difficulty w/ Childcare or Family Care: No Living arrangements: with family Additional living arrangements comments: Lives in [place] with son Clinton. Additional occupation/education comments: Unemployed. Spiritual care concerns: No Meds Home Medications and Allergies Home Medications Medication Instructions Recorded Confirmed Type tizanidine 4 mg tablet 4 mg PO Q6H 06/13/22 08/14/22 History cyclobenzaprine 10 mg tablet 10 mg PO BID PRN muscle spasm #14 07/31/22 08/14/22 Rx tabs gabapentin 300 mg capsule 300 mg PO TID 08/07/22 08/14/22 History meloxicam 7.5 mg tablet 7.5 mg PO DAILY 08/07/22 08/14/22 History Allergies Allergy/AdvReac Type Severity Reaction Status Date / Time No Known Allergies Allergy Verified 08/14/22 09:13 Vital Signs Vital Signs - 24 hr 08/14/22 09:14 Temperature 97.2 F L Pulse Rate 79 Respiratory Rate 16 Blood Pressure 101/43 L Pulse Oximetry 99 Oxygen Delivery Room Air Exam Const: General: comfortable and no acute distress HENMT: Face/Nose/Sinus: Normal nares present Eyes: General: appearance normal, both eyes and all related structures Neck: Neck: no JVD Resp: Auscultation: clear to auscultation bilaterally Cardio: Rate: regular rate Rhythm: regular rhythm GI: Inspection: non-distended GI Palp: Yes Soft to palpation Skin: General skin exam: normal color Neuro: General: gait normal Speech: normal speech Extrem: General: normal to inspection Psych: Mental Status: mental status grossly normal Assessment and Plan Assessment and plan (1) Colon cancer screening:
[2022-08-14 10:16] VITALS: BP 88/51; PULSE 78; RESP 16; O2SAT 97
[2022-08-14 10:26] VITALS: BP 93/63; PULSE 81; RESP 23; O2SAT 100
[2022-08-14 10:39] VITALS: BP 98/65; PULSE 80; RESP 37; O2SAT 100
== END 2022-08-14 10:49 | disposition home or self-care (01) ==
PROVIDERS: PCP Internal Medicine; Visit Provider Internal Medicine Gastroenterology
PROC: 0DJD8ZZ Inspection of Lower Intestinal Tract, Via Natural or Artificial Opening Endoscopic (ICD-10-PCS; CPT 45378; principal; 2022-08-14 10:45)
DX: Z12.11 Encounter for screening for malignant neoplasm of colon (principal); K64.8 Other hemorrhoids; F12.90 Cannabis use, unspecified, uncomplicated
CPT/HCPCS: 45378; J2704; J7120

== ENCOUNTER 2024-08-05 14:21 | Outpatient (CLI) | payer OTHER, SELFPAY ==
--- NOTE | 2024-08-05 15:00 | NEURO_ITS ---
Impression: # Complains of paresthesia of lower extremities. ? # Normal motor and sensory Nerve Conduction Study. ? # Normal needle/EMG exam. ? # Clinical correlation recommended. Nerve Conduction Studies Anti Sensory Summary Table ?Stim Site NR Peak (ms) P-T Amp (?V) Site1 Site2 Delta-P (ms) Dist (cm) Delroy (m/s) Left Sup Fibular Anti Sensory (Ant Lat Mall) 14 cm ? 3.3 8.1 14 cm Ant Lat Mall 3.3 16.0 48 Right Sup Fibular Anti Sensory (Ant Lat Mall) 14 cm ? 3.3 5.3 14 cm Ant Lat Mall 3.3 16.0 48 Left Sural Anti Sensory (Lat Mall) Calf ? 3.5 9.4 Calf Lat Mall 3.5 16.0 46 Right Sural Anti Sensory (Lat Mall) Calf ? 3.3 10.0 Calf Lat Mall 3.3 16.0 48 Motor Summary Table ?Stim Site NR Onset (ms) O-P Amp (mV) Site1 Site2 Delta-0 (ms) Dist (cm) Delroy (m/s) Left Peroneal Motor (Vastus Med) Ankle ? 3.4 1.9 Popit Ankle 8.7 42.0 48 Popit ? 12.1 1.1 Right Peroneal Motor (Vastus Med) Ankle ? 3.1 2.2 Popit Ankle 8.7 41.0 47 Popit ? 11.8 1.6 Left Tibial Motor (Abd Mittal Brev) Ankle ? 3.7 4.4 Knee Ankle 9.0 42.0 47 Knee ? 12.7 2.3 Right Tibial Motor (Abd Mittal Brev) Ankle ? 3.9 4.1 Knee Ankle 9.3 41.0 44 Knee ? 13.2 2.6 F Wave Studies ?NR F-Lat (ms) L-R F-Lat (ms) Left Peroneal (Mrkrs) (EDB) ? 48.01 0.35 Right Peroneal (Mrkrs) (EDB) ? 47.66 0.35 Left Tibial (Mrkrs) (Abd Hallucis) ? 49.34 1.63 Right Tibial (Mrkrs) (Abd Hallucis) ? 47.71 1.63 EMG ?Side Muscle Nerve Root Ins Act Fibs Amp Dur Recrt Comment Right AntTibialis Dp Br Fibular L4-5 Nml Nml Nml Nml Nml Right Gastroc Tibial S1-2 Nml Nml Nml Nml Nml Right Fibularis Long Sup Br Fibular L5-S1 Nml Nml Nml Nml Nml Right Flex Dig Long Tibial L5-S2 Nml Nml Nml Nml Nml Right Ext Dig Brev Dp Br Fibular L5, S1 Nml Nml Nml Nml Nml Right QuadratusFem QuadFemoris L4-5, S1 Nml Nml Nml Nml Nml Left AntTibialis Dp Br Fibular L4-5 Nml Nml Nml Nml Nml Left Gastroc Tibial S1-2 Nml Nml Nml Nml Nml Left Fibularis Long Sup Br Fibular L5-S1 Nml Nml Nml Nml Nml Left Flex Dig Long Tibial L5-S2 Nml Nml Nml Nml Nml Left Ext Dig Brev Dp Br Fibular L5, S1 Nml Nml Nml Nml Nml Left QuadratusFem QuadFemoris L4-5, S1 Nml Nml Nml Nml Nml
== END 2024-08-05 14:22 | disposition home or self-care (01) ==
LOC: ANHNEURO 14:22
PROVIDERS: PCP Emergency Medicine; Visit Provider Emergency Medicine
DX: R20.2 Paresthesia of skin (principal)
CPT/HCPCS: 95886; 95910

== ENCOUNTER 2024-09-16 08:26 | Emergency (ER) | payer OTHER, SELFPAY ==
[2024-09-16] VITALS (23 sets, daily range): BP systolic 105–127; BP diastolic 56–74; PULSE 72–101; RESP 14–32; TEMP 36.4; O2SAT 94–100
--- NOTE | ~2024-09-16 | XR_ITS ---
XR chest 2V 09/16/2024 09:53 Indication: Back pain and chest pain Procedure: 2 view chest Comparison: 06/13/2022 Findings: Shallow inspiration. Bibasilar infiltrates may represent atelectasis, edema or pneumonia. N o significant pleural effusion. No pneumothorax. No acute osseous abnormality. Impression: 1: Bibasilar airspace disease may represent edema, pneumonia and/or atelectasis. Reviewed, dictated and finalized at location A. Impression: 1: Bibasilar airspace disease may represent edema, pneumonia and/or atelectasis .
--- OUTSIDE RECORDS SUMMARY | 2024-09-16 08:29 | XMS_ITS | Clinical Summary ---
Author Organization [facility] Address [address] [place] [address] Care Team Providers Care Software Analyst Name Role Phone Unavailable Primary Care Provider Unavailabl e Source Comments [facility] [employer],non-owned Affiliates and Associated Physician Practices is amultiple site organization consisting of ambulatory clinics and hospital sitesin [place], [place], [place] and [place]. This disclosure is being madepursuant to the Care Everywhere program and may not contain all information available regarding this patient. 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 Gender Identity Not on file Sexual Orientation Not on file Plan of Treatment Health Maintenance Due Date Last Done Comments COLOGUARD (AGES 45-75) - COL ON CA SCREENING 1967 COLON MONITORING 1967 COLONOSCOPY - COLON CA SCREENING 1967 CT COLONOGRAPHY - COLON CA SCREENING 1967 Colorectal Cancer Screening 1967 FIT - COLON CA SCREENING 1967 FLEX SIG - COLON CA SCREENING 1967 LIPID TESTING 1967 MAMMOGRAM 1967 HIV SCREENING 09/02/1982 HEPATITIS C SCREENING 08/29/1985 DTAP/TDAP/TD VACCINES (1 - Tdap) 09/02/1986 HEPATITIS B VACCINE (1 of 3 - 19+ 3-dose series) 09/02/1986 PNEUMOCOCCAL VACCINE 50+ (1 of 1 - PCV) 09/02/2017 ZOSTER VACCINE (1 of 2) 09/02/2017 COVID-19 VACCINE ( - 2023-2 5 season) 2023 DEPRESSION SCREENING 02/13/2024 INFLUENZA VACCINE (#1) 2024 HIB VACCINE Aged Out No longer eligi ble based on patient's age to complete this topic HPV VACCINE Aged Out No longer eligi ble based on patient's age to complete this topic MENINGOCOCCAL (Group B) VACC INE SHARED DECISION-MAKING Aged Out No longer eligibl e based on patient's age to complete this topic MENINGOCOCCAL GROUPS A/C/Y/W VACCINE Aged Out No longer eligible b ased on patient's age to complete this topic Insurance [facility]
--- NOTE | 2024-09-16 08:59 | ECG_ITS ---
Test Date: 2024-09-16 09:12:57 Measurements Intervals [place] Rate: 76 P: 22 MS: 135 QRS: -21 QRSD: 73 T: 13 QT: 375 QTc: 424 Interpretive Statements SINUS RHYTHM LOW QRS VOLTAGE IN PRECORDIAL LEADS POSSIBLE ANTERIOR MYOCARDIAL INFARCTION , PROBABLY OLD BORDERLINE T WAVE ABNORMALITY- ANTERIOR LEADS BASELINE ARTIFACT- I, II, III, AVR, AVL, AVF, V1, V4-V6 ABNORMAL ECG No previous ECG available for comparison Electronically Signed On 09-16-2024 10:01:20 CDT by Charlie Silverman D.O.
--- OUTSIDE RECORDS SUMMARY | 2024-09-16 09:18 | XMS_ITS | Clinical Summary ---
Author Organization [facility] Address [address] [place] [address] Care Team Providers Care Hand Outside Cutter Name Role Phone Unavailable Primary Care Provider Unavailabl e Source Comments [facility] [employer],non-owned Affiliates and Associated Physician Practices is amultiple site organization consisting of ambulatory clinics and hospital sitesin [place], [place], [place] and [place]. This disclosure is being madepursuant to the Care Everywhere program and may not contain all information available regarding this patient. 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
--- NOTE | 2024-09-16 09:22 | ED.BACK ---
HPI - Back Pain/Injury General Chief Complaint: Back Pain/Injury Stated Complaint: back pain Time Seen by Provider: 09/16/24 09:02 Source: patient Mode of arrival: ambulatory Limitations: no limitations History of Present Illness HPI Narrative: Patient is a 59-year-old female who presents the ED with report of left upper back pain. Patient reports having pain throughout her left upper back, radiating into her left shoulder, left-sided neck since Sunday. Reports pain has been worsening. Has been taking Geno Back and Body without improvement. Has not taken anything for pain today. Pain worse with deep breathing, movement. She also reports shortness of breath. Denies injury. Denies significant pain or swelling in legs. Denies previous history of heart disease or blood clots. Denies history of HTN, HLD, DM, smoking. Related Data Home Medications ?Medication ?Instructions ?Recorded ?Confirmed ?Last Taken ?Type cholecalciferol (vitamin D3) 10 10 mcg PO DAILY 08/13/23 08/13/23 Unknown History mcg (400 unit) tablet tramadol 25 mg tablet 25 mg PO Q6H PRN 08/13/23 08/13/23 Unknown History Allergies Allergy/AdvReac Type Severity Reaction Status Date / Time No Known Allergies Allergy Verified 09/16/24 08:33 Review of Systems Review of Systems: All systems reviewed & are unremarkable except as noted in HPI. All systems reviewed & are unremarkable except as noted in HPI and below PMFSH Past Medical History Medical History Colon cancer screening Non-cardiac chest pain Elevated lipase Abnormal CT scan, esophagus Arthritis Chronic back pain Surgical History Surgical History History of 2 sections Family History Family History Sibling Breast cancer Father Diabetes mellitus Other Leukemia Other Cancer Social History Social History Social History: Surrogate medical decision maker: Clinton Stokes, blas. Code status: Full code. Smoking status: Never smoker Alcohol intake: current Alcohol use details: rarely Substance use: current Substance use type: marijuana Other substance usage details: SMOKES FOR THE PAIN MOST DAYS OR 4-5 DAYS A WEEK Lack of Transportation: YES Lack of Food: Never True Current Housing: I Have Housing Concerned About Future Housing: No Difficulty Paying Gas/Electric Bills: YES Difficulty Paying for Meds: No Currently Unemployed: Decline to Answer Education: Decline to Answer Difficulty w/ Childcare or Family Care: No Living arrangements: with family Additional living arrangements comments: Lives in [place] with son Clinton. Additional occupation/education comments: Unemployed. Spiritual care concerns: No Exam Narrative: GENERAL: Mildly uncomfortable appearing, well-nourished, non-toxic, in no acute distress. HEAD: Normocephalic, atraumatic. RESPIRATORY: Airway patent, respirations nonlabored. Clear to auscultation bilaterally, no rales, rhonchi, wheezing. No significant focal lung sounds. CARDIOVASCULAR: Regular rate and rhythm without murmurs, rubs, or gallops. MUSCULOSKELETAL: Moves all extremities. No gross deformities. Tenderness to palpation over left upper back/medial scapular region, reproducing pain. Very mild tenderness along L lower trapezius region. Pain reported with movement and ROM of LUE. No peripheral edema. No calf tenderness. SKIN: Warm, dry, normal color. NEURO: A&O X3. Speech clear. Cranial nerves II-XII grossly intact. Steady gait. No ataxic movements. PSYCHIATRIC: Appropriate mood and affect. Normal interaction. Course Vital Signs Vital signs: Vital Signs Temperature 97.6 F 09/16/24 08:30 Pulse Rate 77 09/16/24 08:30 Respiratory Rate 18 09/16/24 08:30 Blood Pressure 127/64 09/16/24 08:30 Pulse Oximetry 100 09/16/24 08:30 Oxygen Delivery Room Air 09/16/24 08:30 Temperature 97.6 F 09/16/24 08:30 Pulse Rate 75 09/16/24 12:50 Respiratory Rate 14 09/16/24 12:50 Blood Pressure 106/74 09/16/24 12:50 Pulse Oximetry 98 09/16/24 12:50 Oxygen Delivery Room Air 09/16/24 09:11 MDM - Back Pain/Injury MDM Narrative Medical decision making narrative: Patient presented to ED with left upper back pain, radiating into left shoulder and left neck. Vital signs are stable upon arrival. Patient in no acute distress. Patient does have reproducible tenderness on exam. Seems most likely musculoskeletal. Will attempt pain control. No significant risk factors for coronary disease, however given her age and female, will rule this out. EKG with sinus rhythm, no concerning ST changes. Troponin undetectable. D-dimer within normal range. Chest x-ray with likely atelectasis related to poor/shallow inspiration. She does not appear fluid overloaded. BNP is within normal range. She denies any recent respiratory complaints, cough, fevers. Low suspicion for pneumonia. Laboratory studies w/o leukocytosis or anemia, stable electrolytes. Stable kidney function. Minimal transaminitis. Alk-phos is slightly elevated, though this appears consistent with previous records. Discussed lab and imaging findings, overall reassuring workup with patient. She is feeling improved with supportive therapy in the ED. discussed high likelihood of musculoskeletal etiology, thoracic strain. Feel safe for discharge home at this time. Will prescribe muscle relaxers, lidocaine patches for home use. Recommended she follow-up with PCP for further evaluation. Discussed return precautions. She agrees with plan. Discharged in stable condition. Medical Records Attestation: I reviewed the patient's medical records. Lab Data Attestation: I reviewed the patient's lab results. 09/16/24 09:34 09/16/24 09:34 Labs: Lab Results 09/16/24 Range/Units 09:34 WBC 6.0 (4.5-10.0) K/mm3 RBC 4.41 (4.2-5.4) M/mm3 Hgb 14.2 (12.0-15.0) g/dL Hct 43.2 (37.0-47.0) % MCV 98.0 (80-100) fl MCH 32.2 (26-34) pg MCHC 32.9 (32-36) g/dl RDW 13.4 (11.5-14.5) % Plt Count 205 (150-375) k/mm3 MPV 8.7 (7.4-10.4) fl Immature Gran % (Auto) 0.3 (0-0.5) % Neut % (Auto) 67.0 (45.5-73.1) % Lymph % (Auto) 18.4 (18.3-44.2) % [place] % (Auto) 9.9 H (2.6-8.5) % Eos % (Auto) 3.9 (0-4.4) % Baso % (Auto) 0.5 (0.2-1.2) % Lymph # (Auto) 1.10 (0.9-3.2) K/mm3 [place] # (Auto) 0.6 (0.1-0.6) K/mm3 Eos # (Auto) 0.2 (0-0.3) K/mm3 Baso # (Auto) 0.0 (0.0-0.1) K/mm3 Abs Immat Gran (auto) 0.02 (0.00-0.031) K/mm3 Absolute Neuts (auto) 4.0 (1.3-6.7) K/mm3 Absolute Nucleated RBC 0.000 (0.0-0.012) K/mm3 Nucleated RBC % 0.0 (0.0-0.2) % PT 12.9 (11.1-14.7) Seconds INR 1.0 APTT 22.0 L (22.3-36.8) Seconds D-Dimer 0.33 (<0.48) ug/mL Sodium 136 L (137-145) mmol/L Potassium 4.3 (3.4-5.0) mmol/L Chloride 102 (98-107) mmol/L Carbon Dioxide 27 (22-30) mmol/L Anion Gap 7 (4-12) mmol/L BUN 18 H (7-17) mg/dL Creatinine 0.66 L (0.7-1.0) mg/dL Estim Creat Clear Calc 87 ml/min Estimated GFR > 60 (59 - ) Glucose 95 (65-110) mg/dL Calcium 9.4 (8.4-10.2) mg/dL Total Bilirubin 0.8 (0.2-1.3) mg/dL AST 39 H (14-36) U/L ALT 36 H (6-35) U/L Alkaline Phosphatase 263 H (38-126) U/L Troponin I < 0.012 (0.000-0.034) ng/mL NT-Pro-B Natriuret Pep 75 (19.9-100) pg/mL Total Protein 7.7 (6.3-8.2) g/dL Albumin 4.3 (3.5-5.1) g/dL Imaging Data Attestation: I personally reviewed and interpreted this imaging study as follows: Radiologist's impression: ITS Impressions Chest X-Ray 09/16/24 10:06 Impression: 1: Bibasilar airspace disease may represent edema, pneumonia and/or atelectasis. ECG Data EKG #1: Attestation: I personally reviewed and interpreted this ECG as follows: ECG completion date: 09/16/24 ECG completion time: 09:12 EKG Interpretation: normal rate (76), sinus rhythm and no ST changes Discharge Plan Discharge Clinical Impression: Strain of thoracic back region Patient Disposition: Home Condition: Stable Instructions: Antibiotic Form, Thoracic Back Strain (ED) Additional Instructions: Continue Tylenol and Ibuprofen around the clock as needed for pain. You may use ice/heat, lidocaine patches to area of pain. Take muscle relaxers as needed and prescribed. Recommend taking these at night as they may cause sedation. Do not drive, operate heavy machinery, drink alcohol while on muscle relaxers as this may cause further sedation. Follow-up with your primary care doctor for further evaluation. Return to the ED if you experience worsening or severe pain, recurrent injury, numbness in arms or legs, chest pain, difficulty breathing, unable to keep down food or drink, or any other symptoms of concern. Patient Language: Barbadian Prescriptions: New lidocaine 5 % adhesive patch,medicated 1 patch topical DAILY Qty: 15 0RF Rx Instructions: leave on most painful area for up to 12 hrs cyclobenzaprine 5 mg tablet 5 mg PO TID PRN (Reason: muscle spasm) Qty: 15 0RF No Action tramadol 25 mg tablet 25 mg PO Q6H PRN cholecalciferol (vitamin D3) 10 mcg (400 unit) tablet 10 mcg PO DAILY Follow-up/Referrals: Bertrand,Mery Nix MD [Primary Care Provider] - Time of Disposition: 12:29
[2024-09-16 09:40] LABS: Hematocrit 43.2 % (37.0-47.0); Hemoglobin 14.2 g/dL (12.0-15.0); Immature Granulocyte Percent A 0.3 % (0-0.5); Lymphocytes Absolute Auto 1.10 K/mm3 (0.9-3.2); Mean Corpuscular HGB Conc 32.9 g/dl (32-36); Mean Corpuscular Hemoglobin 32.2 pg (26-34); Mean Corpuscular Volume 98.0 fl (80-100); Nucleated Red Blood Cells Absolute Auto 0.000 K/mm3 (0.0-0.012); Nucleated Red Blood Cells Perc 0.0 % (0.0-0.2); Platelet Count Result 205 k/mm3 (150-375); Red Blood Count 4.41 M/mm3 (4.2-5.4); White Blood Count 6.0 K/mm3 (4.5-10.0)
--- NOTE | 2024-09-16 09:44 | PC.NURSE ---
Patient in radiology at this time
[2024-09-16] MEDS: LIDOCAINE 5% PATCH 1 PATCH TRANSDERM (09:49)
[2024-09-16] MEDS: ACETAMINOPHEN 500 MG TABLET 1000 MG PO (09:49)
[2024-09-16] MEDS: CYCLOBENZAPRINE HCL 5 MG TABLET PO (09:50)
[2024-09-16] MEDS: KETOROLAC 30 MG/ML VIAL (*BKC) IV PUSH (09:50)
[2024-09-16 09:55] LABS: INR 1.0; Partial Thromboplastin Time 22.0 Seconds (22.3-36.8); Prothrombin Time 12.9 Seconds (11.1-14.7)
[2024-09-16 10:32] LABS: Alanine Aminotransferase 36 U/L (6-35); Albumin Level 4.3 g/dL (3.5-5.1); Alkaline Phosphatase 263 U/L (38-126); Anion Gap 7 mmol/L (4-12); Aspartate Amino Transferase 39 U/L (14-36); Bilirubin,Total 0.8 mg/dL (0.2-1.3); Blood Urea Nitrogen 18 mg/dL (7-17); Calcium 9.4 mg/dL (8.4-10.2); Carbon Dioxide 27 mmol/L (22-30); Chloride 102 mmol/L (98-107); Estimated CRCL calculation 87 ml/min; Estimated Glomerular Filt Rate > 60; Glucose 95 mg/dL (65-110); Potassium 4.3 mmol/L (3.4-5.0); Sodium 136 mmol/L (137-145); Total Protein 7.7 g/dL (6.3-8.2)
[2024-09-16 10:43] LABS: NT Pro B Type Natriuretic Pept 75 pg/mL (19.9-100); Troponin I < 0.012 ng/mL (0.000-0.034)
== END 2024-09-16 12:54 | disposition home or self-care (01) ==
PROVIDERS: Emergency Provider Physician Assistant; PCP Emergency Medicine
DX: S29.012A Strain of muscle and tendon of back wall of thorax, initial encounter (principal); M19.90 Unspecified osteoarthritis, unspecified site; R91.8 Other nonspecific abnormal finding of lung field; X58.XXXA Exposure to other specified factors, initial encounter
CPT/HCPCS: 36415; 71046; 80053; 83880; 84484; 85025; 85380; 85610; 85730; 93005; 96374; 99284; A9270; J1885

== ENCOUNTER 2024-12-03 10:02 | Emergency (ER) | payer OTHER, SELFPAY ==
--- NOTE | ~2024-12-03 | XR_ITS ---
XR lumbar spine 2-3V 12/03/2024 12:54 Indication: Low back pain Procedure: 4 views lumbar spine Comparison: No prior studies for comparison. Findings: There is dextroscoliosis of the lumbar spine. Vertebral body heights are maintained. There is disc narrowing at L2-3. There is grade 1 degenerative spondylolisthesis at L4-5 secondary to facet hypertrophy. There is multilevel facet arthropathy. No acute fracture or traumatic malalignment. Impression: 1: Severe lumbar spondylosis with dextroscoliosis. Reviewed, dictated and finalized at location O. Impression: 1: Severe lumbar spondylosis with dextroscoliosis.
[2024-12-03 11:43] VITALS: BP 101/53; PULSE 77; RESP 16; O2SAT 100
--- OUTSIDE RECORDS SUMMARY | 2024-12-03 11:54 | XMS_ITS | Clinical Summary ---
Author Organization [facility] Address [address] [place] [address] Care Team Providers Care Garnett Fixer Name Role Phone Unavailable Primary Care Provider Unavailabl e Source Comments [facility] [employer],non-owned Affiliates and Associated Physician Practices is amultiple site organization consisting of ambulatory clinics and hospital sitesin [place], [place], [place] and [place]. This disclosure is being madepursuant to the Care Everywhere program and may not contain all information available regarding this patient. 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
[2024-12-03 12:25] VITALS: TEMP 36.7
[2024-12-03] MEDS: KETOROLAC 30 MG/ML VIAL (*BKC) IM (12:35)
--- NOTE | 2024-12-03 14:29 | ED.GENADULT ---
HPI - General Adult General Chief complaint: Extremity Problem,Nontraumatic Stated complaint: BLE cramping x 1 hour Time Seen by Provider: 12/03/24 12:05 History of Present Illness HPI narrative: Patient is a 59-year-old female who presents ER with left-sided low back pain. Ongoing for several days but started having cramping in her low back into her legs. No numbness or tingling to the groin or lower extremities. She is able to urinate and defecate. She has been taking Tylenol and ibuprofen at home and they will help and then wear off and her pain returns. No known trauma. No fevers or chills or sweats. Related Data Home Medications ?Medication ?Instructions ?Recorded ?Confirmed ?Last Taken ?Type cholecalciferol (vitamin D3) 10 10 mcg PO DAILY 08/13/23 08/13/23 Unknown History mcg (400 unit) tablet tramadol 25 mg tablet 25 mg PO Q6H PRN 08/13/23 08/13/23 Unknown History Allergies Allergy/AdvReac Type Severity Reaction Status Date / Time No Known Allergies Allergy Verified 12/03/24 10:05 Review of Systems Review of Systems: All systems reviewed & are unremarkable except as noted in HPI and below Constitutional: Constitutional: Reports no additional constitutional complaints Musculoskeletal: Musculoskeletal: Reports no additional musculoskeletal complaints Integumentary/Breasts: Skin/Breast: Reports system reviewed and no additional complaints, except as docu PMFSH Past Medical History Medical History Colon cancer screening Non-cardiac chest pain Elevated lipase Abnormal CT scan, esophagus Arthritis Chronic back pain Surgical History Surgical History History of 2 sections Family History Family History Sibling Breast cancer Father Diabetes mellitus Other Leukemia Other Cancer Social History Social History Social History: Surrogate medical decision maker: Clinton Stokes, son. Code status: Full code. Smoking status: Never smoker Alcohol intake: current Alcohol use details: rarely Substance use: current Substance use type: marijuana Other substance usage details: SMOKES FOR THE PAIN MOST DAYS OR 4-5 DAYS A WEEK Lack of Transportation: YES Lack of Food: Never True Current Housing: I Have Housing Concerned About Future Housing: No Difficulty Paying Gas/Electric Bills: YES Difficulty Paying for Meds: No Currently Unemployed: Decline to Answer Education: Decline to Answer Difficulty w/ Childcare or Family Care: No Living arrangements: with family Additional living arrangements comments: Lives in [place] with son Clinton. Additional occupation/education comments: Unemployed. Spiritual care concerns: No Exam Narrative: GENERAL: Well-appearing, well-nourished, and in no acute distress. HEAD: Normocephalic, atraumatic. ENT: Mucous membranes moist. CHEST: Clear to auscultation. No respiratory distress. HEART: Regular rate and rhythm. Normal peripheral pulses. Back: No midline tenderness of her T/L-spine. There is tenderness at the SI region and the L5 paraspinal musculature on the left. No right-sided tenderness. EXTREMITIES: Normal range of motion. No edema. SKIN: Warm, dry, no rash. NEURO: Alert and oriented x3. PSYCH: Normal mood and affect. Course Course Emergency Course: Pain improved with Toradol. Discussed imaging findings on x-ray. Patient appropriate for discharge home with anti-inflammatories muscle relaxers. She will follow-up with her PCP. Vital Signs Vital signs: Vital Signs Pulse Rate 77 12/03/24 11:43 Respiratory Rate 16 12/03/24 11:43 Blood Pressure 101/53 L 12/03/24 11:43 Pulse Oximetry 100 12/03/24 11:43 Oxygen Delivery Room Air 12/03/24 11:43 Temperature 98.1 F 12/03/24 12:25 Pulse Rate 77 12/03/24 11:43 Respiratory Rate 16 12/03/24 11:43 Blood Pressure 101/53 L 12/03/24 11:43 Pulse Oximetry 100 12/03/24 11:43 Oxygen Delivery Room Air 12/03/24 11:43 Medical Decision Making Differential Diagnosis Differential Diagnosis: Structural traumatic injury, spinal infection, cauda equina Vital Signs Vital Signs: Vital Signs Pulse Rate 77 12/03/24 11:43 Respiratory Rate 16 12/03/24 11:43 Blood Pressure 101/53 L 12/03/24 11:43 Pulse Oximetry 100 12/03/24 11:43 Oxygen Delivery Room Air 12/03/24 11:43 Temperature 98.1 F 12/03/24 12:25 Pulse Rate 77 12/03/24 11:43 Respiratory Rate 16 12/03/24 11:43 Blood Pressure 101/53 L 12/03/24 11:43 Pulse Oximetry 100 12/03/24 11:43 Oxygen Delivery Room Air 12/03/24 11:43 Imaging Data Radiologist's impression: ITS Impressions Lumbar Spine X-Ray 12/03/24 12:55 Impression: 1: Severe lumbar spondylosis with dextroscoliosis. Discharge Plan Discharge Clinical Impression: Low back strain, Lumbar radiculopathy Patient Disposition: Home Condition: Stable Instructions: Antibiotic Form, Low Back Strain (ED), Lower Back Exercises (ED) Additional Instructions: Please return to the emergency department if you develop severe pain that is not controlled by pain medications or if you are unable to walk because of pain or weakness. Return to the emergency department immediately if you develop fevers, loss of bowel or bladder control (dribbling of urine or having accidents you wouldn't normally have), inability to urinate, numbness of your genital or anal area, or weakness/numbness of your legs or arms as these could all be signs of a serious medical emergency. Patient Language: Maltese Prescriptions: New naproxen 375 mg tablet 375 mg PO BID Qty: 14 0RF tizanidine 2 mg capsule 2 mg PO Q8H PRN (Reason: muscle spasticity) Qty: 14 0RF No Action tramadol 25 mg tablet 25 mg PO Q6H PRN cholecalciferol (vitamin D3) 10 mcg (400 unit) tablet 10 mcg PO DAILY lidocaine 5 % adhesive patch,medicated 1 patch topical DAILY Qty: 15 0RF Rx Instructions: leave on most painful area for up to 12 hrs cyclobenzaprine 5 mg tablet 5 mg PO TID PRN (Reason: muscle spasm) Qty: 15 0RF Follow-up/Referrals: Bertrand,Mery Nix MD [Primary Care Provider, Unknown] - 1 Week
[2024-12-03 14:57] VITALS: BP 130/87; PULSE 89; RESP 20; O2SAT 99
--- OUTSIDE RECORDS SUMMARY | 2024-12-03 15:23 | XMS_ITS | Clinical Summary ---
Author Organization [facility] Address [address] [place] [address] Care Team Providers Care C4 Planner Name Role Phone Unavailable Primary Care Provider Unavailabl e Source Comments [facility] [employer],non-owned Affiliates and Associated Physician Practices is amultiple site organization consisting of ambulatory clinics and hospital sitesin [place], [place], [place] and [place]. This disclosure is being madepursuant to the Care Everywhere program and may not contain all information available regarding this patient. Last updated 17.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
--- OUTSIDE RECORDS SUMMARY | 2024-12-03 15:23 | XMS_ITS | Data Portability ---
Author Organization [place] [employer], Main Office Address [address] [place] [address] Assessment Encounter Date Assessment Date Assessment LastModified by Organization Details LastModified Time 07/02/2023 07/02/2023 57-year-old female presents for follow-up of her right shoulder status post rotator cuff repair on 01/11/2023, with dermis on demand reinforcement and also she had bone cyst at the rotator cuff footprint so we did a single row repair. Overall she reports feeling better, currently rates her pain as 2/10. She has finished with her course of physical therapy. She reports that she can do daily activities without difficulty. Incisions well healed. No focal tenderness around the shoulder. She has active elevation to 120, similar with passive. External rotation to 20, internal rotation to back pocket. She has good rotator cuff strength, no pain with resisted internal external rotation or elevation. Negative Collette. She is able to reach her face in the top of her head with that arm. She is progressing proximally 6 months after surgery. She is happy that she can do her daily activities without much difficulty. We discussed that she should continue to work on range of motion and trying to get full range of motion, as well as progressing with activities of the shoulder. She we will have her follow up in 6 more months for her 1 year postop visit. She is in agreement with the plan. [email or web address] Not available 07/02/2023 16:43:37 08/30/2023 08/30/2023 This note is dictated and transcribed by [employer]. Bilingual Sales Consultant variances may occur. Despite proofreading, typographical errors may occur. Occasional wrong-word or '[id number]' substitutions may have occurred due to the inherent limitations of voice recording. Read the chart carefully and recognize, using context, where substitutions have occurred. [email or web address] Not available 08/30/2023 15:38:56 12/31/2023 12/31/2023 57-year-old female presents for follow-up of her right shoulder status post rotator cuff repair on 01/11/2023, with dermis on demand reinforcement and also she had bone cyst at the rotator cuff footprint so we did a single row repair. Overall she reports feeling better, currently rates her pain as 1/10. She has states she has improved ROM. She has a new problem of right wrist pain after hitting it on her nightstand 5 weeks ago. She has been wearing a brace, which has not helped. Incisions well healed. No focal tenderness around the shoulder. ROM 150/30/back pocket. She has good rotator cuff strength, no pain with resisted internal external rotation or elevation. Negative Collette. Tenderness to palpitation over distal ulna/TFCC. No restrictions in ROM. Sensation intact throughout. Imaging: Xrays of the right wrist show irregularity of the distal ulna. No obvious fracture. Osteopenic. She is one year post op and has no complaints. We no longer need to see her back for recheck for the shoulder. For the wrist we will fit her for a better wrist brace. We discussed that if she injured the ulna treatment would be rest and immobilization. We will have her wear the brace for a few more weeks and start taking anti-inflammator ies/using voltaren. If she is still having pain in 4 weeks we may be able to inject the TFCC, if that is where the majority of her pain is. We discussed taking calcium and vitamin D supplements. We will see her back as needed. Not available 12/31/2023 12:23:38 02/11/2024 02/11/2024 57-year-old female presents for follow-up of her right wrist pain after hitting it on her nightstand. She has been wearing a brace, which has helped. She states the pain is off and on and a 3/10 at most. She takes off the brace to sleep but wears it during the day. She is not taking any medications. No tenderness to palpitation over distal ulna/TFCC. No restrictions in ROM. Sensation intact throughout. We will have her come out of the brace and see how it feels. We discussed taking NSAIDs and using voltaren as needed. If the pain returns she can come back and we can try a cortisone injection into the TFCC or get an MRI to see if there is an injury to the cartilage. She is in agreement with this plan. Not available 02/11/2024 13:28:47 Plan of Treatment Reminders Order Date Submit Date Provider Last Modified By Organization Details Last Modified Time Details Appointments None record ed. Lab None record ed. Referral None record ed. Procedures None record ed. Surgeries None record ed. Imaging XR, wrist, 3 or more view 024 12/31/19 24 [email or web address] s_[facility], [address] [place] [address], [address], [place], [address], 13:09:25 Medication Orders None record ed. Patient TargetsNo targets recorded. Patient Instructions Encounter Date Encounter Id Patient Instructions Last Modified By Organization Details Last Modified Time 08/30/2023 [id number] plantar fasciiti s education [email or web address] Not available 09/12/2023 14:16:39 plantar fasciitis: exercises [email or web address] Not available 09/12/2023 14:16:39 Reason for Referral None Reported. Results Created Date Observation Date Name Description Value Unit Range Abnormal Flag Note LastModifiedBy Organization Detail LastModifiedTime 12/31/19 24 XR, wrist , 3 or more view No observ ation record ed. [email or web address] [facility] [address], [address], [place], [address], 12/31/2023 11:38:19 Result Notes None recorded. Problems Name Problem SNOMED Code Status Onset Date Resolution Date Notes Provider Name and Address Organization Details Recorded Time Pain of right shoulder joint 6271005515266 9100 Active 2022 COCO Castillo, ID [employer] [facility] [employer] 3 09:06:42 Osteoporos is 53320576 Active 2022 JEFFREY Gonzalze, [employer], [employer] [facility] [employer] [facility] 3 09:41:33 Neurofibro matosis syndrome 15759401 Active 2022 JEFFREY Gonzalez, [facility] 3 10:09:31 Rupture of rotator cuff of right shoulder 1743359674021 9103 Active 2022 Gato Gibson MD [address], [place], [address] , [facility] 3 09:58:18 Pain of left wrist 2423665998660 02 Active 2023 INGRIS James null, [facility] 4 10:55:20 Arthritis 3033486 Active 2023 Serenity Yusuf null, [facility] 4 14:57:51 Headache 01417740 Active 2023 Serenity Yusuf null, [facility] 4 14:57:59 Migraine 74403289 Active 2023 Serenity Yusuf null, [facility] 4 14:58:06 Pain of right heel 7593097199134 105 Active 2023 Dar Alfaro DPM [address], [place], [address] , [facility] 4 15:37:54 Plantar fasciitis of right foot 3544579027315 9101 Active 2023 Dar Alfaro DPM [address], [place], [address] , [facility] 4 15:37:57 Pain of right wrist 0855621052703 00 Active 2023 COCO Muñoz null, [facility] 4 11:38:21 Problem Notes None recorded. Procedures Surgical History Date Name Laterality Status Provider Name and Address Organization Details Recorded Time 4 Plantar Fascia Injection Right Foot completed Dar Alfaro DPM [address], [place], [address], [facility] 08/30/2023 15:42:19 other completed Aarti Curry [facility] 08/30/2023 15:00:38 section completed Aarti Curry [facility] 08/30/2023 15:01:02 Imaging Results None recorded. Procedure Notes None recorded. Medical Equipment None Reported. Allergies No known drug allergies Medications Name Sig Start Date Stop Date Status Note LastModified by Organization Details LastModified Time cyclobenzap rine 10 mg tablet TAKE ONE TABLET BY MOUTH TWICE DAILY NEEDED FOR MUSCLE SPASMS 12/30 completed Not Available Not Available Not Available ibuprofen 800 mg tablet TAKE 1 TABLET BY MOUTH THREE TIMES DAILY 08/29 completed Not Available Not Available Not Available tizanidine 4 mg tablet TAKE ONE TABLET EVERY SIX HOURS BY MOUTH NEEDED FOR 30 DAYS 11/23 completed Not Available Not Available Not Available ampicillin 500 mg capsule TAKE 1 CAPSULE BY MOUTH FOUR TIMES DAILY UNTIL ALL TAKEN 06/21 completed Not Available Not Available Not Available hydrocodone 5 mg-acetamin ophen 325 mg tablet TAKE 1 TABLET BY MOUTH EVERY 6 HOURS 08/29 completed Not Available Not Available Not Available hydrocodone 10 mg-acetamin ophen 325 mg tablet TAKE 1 TABLET BY MOUTH EVERY DAY FOR 10 DAYS NEEDED 11/23 completed Not Available Not Available Not Available tramadol 50 mg tablet TAKE 1 TABLET BY MOUTH FOUR TIMES DAILY NEEDED 09/24 completed Not Available Not Available Not Available baclofen 20 mg tablet TAKE 1 TABLET BY MOUTH THREE TIMES DAILY NEEDED 10/19 completed Not Available Not Available Not Available meloxicam 7.5 mg tablet TAKE 1 TABLET BY MOUTH EVERY DAY DIRECTED 11/23 completed Not Available Not Available Not Available alendronate 35 mg tablet TAKE ONE TABLET BY MOUTH EVERY WEEK 30 MINUTES BEFORE FIRST MEAL OF DAY DIRECTED 08/29 completed Not Available Not Available Not Available pantoprazol e 40 mg tablet,lemuel yed release TAKE 1 TABLET BY MOUTH EVERY MORNING 11/23 completed Not Available Not Available Not Available gabapentin 300 mg capsule TAKE 1 CAPSULE BY MOUTH THREE TIMES DAILY DIRECTED 08/29 completed Not Available Not Available Not Available gabapentin 100 mg capsule TAKE ONE CAPSULE BY MOUTH THREE TIMES DAILY 09/24 completed Not Available Not Available Not Available cholecalcif chava (vitamin D3) 1,250 mcg (50,000 unit) capsule TAKE ONE CAPSULE BY MOUTH EVERY WEEK DIRECTED active Not Available Not Available No t Available Vitals Date Recorded Body height Body mass index (BMI) Body weight Provider Name and Address Organization Details Last Updated DateTime 07/02/2023 160.02 cm 29.9 kg/m2 92587.11 g INGRIS James [facility] [employer] [facility] 07/02/2023 10:54:42 Date Recorded Body height Body mass index (BMI) Body weight Provider Name and Address Organization Details Last Updated DateTime 08/30/2023 167.64 cm 27.4 kg/m2 44204.7 g Serenity Yusuf [facility] [employer] [facility] 08/30/2023 14:56:24 Date Recorded Heart rate Respiratory rate Body temperature Provider Name and Address Organization Details Last Updated DateTime 08/30/2023 76 /min 14 /min 98.6 [degF] Aarti Curry MA [facility] [employer] [facility] 08/30/2023 15:00:00 Date Recorded Body height Body mass index (BMI) Body weight Heart rate Respiratory rate Body temperature Oxygen saturation Oxygen saturation in Arterial blood by Pulse oximetry Systolic And Diastolic Provider Name and Address Organization Details Last Updated DateTime 167.64 cm 27.4 kg/m2 83662.7 g 71 /min 14 /min 97.4 [degF] 97 % 97 % 112/70 mm[Hg] Estela Deshpande [facility] [employer] [facility] 09:46:27 Date Recorded Body height Body mass index (BMI) Body weight Provider Name and Address Organization Details Last Updated DateTime 12/31/2023 167.64 cm 27.3 kg/m2 37033.11 g Arline Nair Tori [facility] [employer] [facility] 12/31/2023 11:37:09 Date Recorded Body height Body mass index (BMI) Body weight Pain severity - 0-10 verbal numeric rating [Score] - Reported Provider Name and Address Organization Details Last Updated DateTime 02/11/2024 167.64 cm 27.3 kg/m2 51229.11 g 2 Arline Nair Tori [facility] [employer] [facility] 02/11/2024 10:14:17 Social History Question Answer Notes LastModified by Organizat ion Details LastModified Time Tobacco Smoking Status Never Smoker Rosanne Heber, RMTori null, [place] [facility] 10/19/2022 09:05:35 What Was The Date Of Your Most Recent Tobacco Screening? 12/31/2023 Information not available 12/31/2023 Sex: Unknown Functional Status Question Answer Note LastModified by Organization D etails LastModified Time What is your level of alcohol consumption? None [email or web address] Information not available 08/30/2023 Mental Status None recorded. Family History Relationship Description Onset Age of this Age Resolved Age Notes LastModified by Organization Details LastModified Time Sister Family history of malignant neoplasm Not available 2022 09:05:21 Father Diabetes mellitus [email or web address] Not available 2022 09:05:28 Father Family history of malignant neoplasm [email or web address] Not available 2023 14:58:32 Medical History Condition Response ARTHRITIS Y OSTEOPOROSIS Y HEADACHES/MIGRAINES Y Gynecological HistoryNo gynecological history recorded. Obstetrics History GPAL:G 0 P 0 0 0 0 Past Encounters Encounter ID Performer Location Encounter Start Date Encounter Closed Date Diagnosis/Indication Diagnosis SNOMED-CT Code Diagnosis ICD10 Code Diagnosis IMO Codes Diagnosis Note [id number] Geraldo Streeter MD [place] [address] 10/19/2022 08:42:50 10/23/2022 11:15:11 Pain of right shoulder joint 5876583072 4556850 M25.511 Osteoporosis 22295021 M8 1.0 [id number] Geraldo Streeter MD [facility] [address] 11/23/2022 13:35:36 12/04/2022 11:04:02 Pain of right shoulder joint 0803919256 8123967 M25.469 [id number] Gato Gibson MD [place] [address] 12/18/2022 09:11:39 12/18/2022 10:04:43 Pain of right shoulder joint 3369872417 5395462 M25.511 Rupture of rotator cuff of right shoulder 7839196597 4427283 M75.846 [id number] Alice Antony NP [place] [address] 01/29/2023 09:03:41 01/29/2023 09:41:50 Pain of right shoulder joint 8085502183 9793261 M25.967 [id number] Gato Gibson MD [place] [address] 02/26/2023 09:44:03 02/26/2023 10:22:40 Pain of right shoulder joint 0108639812 0131953 M25.409 [id number] Gato Gibson MD [place] [address] 04/09/2023 09:52:40 04/09/2023 10:42:30 Pain of right shoulder joint 2475309570 9427887 M25.511 Rupture of rotator cuff of right shoulder 6730498288 1651682 M75.600 [id number] Gato Gibson MD [place] [address] 07/02/2023 10:52:28 07/02/2023 11:27:48 Pain of right shoulder joint 9152381595 4793118 M25.511 Rupture of rotator cuff of right shoulder 6080814366 0252329 M75.518 [id number] Dar Alfaro DPM [facility] [address] [address] 08/30/2023 14:47:57 09/12/2023 16:38:26 Pain of right heel 9462157196 692332 M79.671 x-ray and mri reviewed Plantar fa sciitis of right foot 4249792236 3921664 M72.2 injection today [id number] Dar Alfaro DPM [facility] [address] [address] 09/25/2023 09:43:46 09/25/2023 14:25:35 Pain of right heel 8354088949 573507 M79.671 x-ray and mri reviewed Plantar fa sciitis of right foot 8286612113 6394504 M72.2 injection Last visitresol vedrecomme nd [employer] orthotics and supportive shoe gearFollow -up as needed [id number] Gato Gibson MD [facility] [address] 12/31/2023 11:17:51 12/31/2023 12:14:11 Rupture of rotator cuff of right shoulder 4360618632 9627093 M75.101 Pain of right wrist 3169 430646 99934 M25.351 [id number] Gato Gibson MD [facility] [address] 02/11/2024 10:04:57 02/11/2024 10:30:53 Pain of left wrist 5732878374 43876 M25.532 Health Concerns Section Related Observation LastModified by Organization Detai ls LastModified Time None Recorded Concern Status LastModified by Organization Details LastModified Time None Recorded Advance Directives Directive None Recorded Payers Insurance Date Sequence Insurance Name Policy Number Policy Pride Covered Member ID Pride Member ID Guarantor Name 05/06/2024 1 [facility] (MEDICAID HMO) [id number] Yenconstantin Hutchinson [id number] Yen Stokes Notes Date Note Type Note Provider Name and Address Organization Details Recorded Time 08/30/2023 text/html . Patient is a 58-year-old female who presents to the office with complaints of right foot pain. Patient states when she is walking or standing she has pain to the plantar part of the heel. Patient states it is worse when she is active. Patient states the pain is improved with rest but hurts after she gets up from rest. Patient denies any other complaints. Dar Alfaro DPM [address] [facility], [facility] [address], [place], [address], [facility] 09/12/2023 14:16:58 09/25/2023 text/html . Patient is a 58-year-old female who returns the office for follow-up on burning of the heel with pain. Patient states that she is no longer having any discomfort. Patient has changed her shoe gear I did recommend supportive insoles such as power steps. Patient denies any other complaints. Dar Alfaro DPM [address] [facility] [address], [place], [address], [place] [facility] [place] [employer] 09/25/2023 10:55:10 OBGyn Episode No OBEpisode recorded.
== END 2024-12-03 14:59 | disposition home or self-care (01) ==
PROVIDERS: Emergency Provider Emergency Medicine; PCP Emergency Medicine
DX: S39.012A Strain of muscle, fascia and tendon of lower back, initial encounter (principal); M47.26 Other spondylosis with radiculopathy, lumbar region; M19.90 Unspecified osteoarthritis, unspecified site; X58.XXXA Exposure to other specified factors, initial encounter
CPT/HCPCS: 72100; 96372; 99283; J1885

== ENCOUNTER 2025-02-01 09:27 | Outpatient (CLI) | payer OTHER, SELFPAY ==
--- NOTE | ~2025-02-01 | MR_ITS ---
EXAMINATION: MR brain/brain stem wo con DATE: 02/01/2025 10:41 INDICATION: Diplopia. TECHNIQUE: Magnetic resonance imaging (MRI) of the brain and brainstem was performed without intravenous contrast. COMPARISON: None. FINDINGS: There are scattered areas of nonspecific increased T2-weighted signal intensity in the cerebral white matter, which is within normal limits for the patient's age. There is no intracranial hemorrhage, acute infarction, or abnormal intracranial mass lesion. The ventricles are normal in size. There is mild mucosal thickening in the paranasal sinuses. The orbits are normal. The mastoid air cells are normal. IMPRESSION: 1. Normal aging brain. Reviewed, dictated and finalized at location E. LD RUNNER IMPRESSION: 1. Normal aging brain.
== END 2025-02-01 09:28 | disposition home or self-care (01) ==
PROVIDERS: PCP Emergency Medicine; Visit Provider Emergency Medicine
DX: H53.2 Diplopia (principal)
CPT/HCPCS: 70551